=== PATIENT | female | born 1970 | race Caucasian/White ===

== ENCOUNTER 2017-01-17 11:41 | Inpatient (IN) | payer OTHER, SELFPAY ==
--- NOTE | 2017-01-17 11:45 | C.PDOC ---
History Of Present Illness 46F presents w syncope and headache. she apparently has had headache for 1 week and her pcp rx her MRI which is why she was here, but she passed out in admitting office and rapid response was called. she is unable to provide further hx- says she does not remember. Time Seen by Provider: 01/17/17 11:44 Chief Complaint (Nursing): Headache Past Medical History Vital Signs: Last Vital Signs Temp 97.7 F 01/19/17 08:15 Pulse 78 01/19/17 08:15 Resp 20 01/19/17 08:15 BP 134/86 01/19/17 08:15 Pulse Ox 95 01/19/17 08:15 - Medical History PMH: Fractures, Gastritis, Hiatal Hernia, Hypothyroidism, Kidney Stones, Migraine, Chronic Kidney Disease Surgical History: Family History: States: Unknown Family Hx - Social History Hx Tobacco Use: No Hx Alcohol Use: No Hx Substance Use: No - Immunization History Hx Tetanus Toxoid Vaccination: No Hx Influenza Vaccination: Yes Hx Pneumococcal Vaccination: No Review Of Systems Review Of Systems: ROS cannot be obtained secondary to pt's inabilty to answer questions. Physical Exam - Physical Exam Skin: Warm, Dry Head: Atraumatic Eye(s): bilateral: PERRL, EOMI Nose: No Epistaxis Oral Mucosa: Moist Lips: No Swelling Neck: Normal ROM, Supple Cardiovascular: Rhythm Regular Respiratory: No Decreased Breath Sounds, No Accessory Muscle Use, No Rales, No Rhonchi, No Wheezing Gastrointestinal/Abdominal: Soft, No Tenderness Extremity: No Swelling Pulses: Left Radial: Normal, Right Radial: Normal Neurological/Psych: No Oriented x3, Normal Cranial Nerves, No Cerebellar Signs, Other (pt is disoriented. she is crying during h&p. no focal deficits.) ED Course And Treatment - Laboratory Results Result Diagrams: 01/19/17 07:09 01/19/17 07:09 Lumbar Puncture - Time Out Time Out: Side verified, Site verified, Patient ID confirmed, Sterile procedures obs. - Consent obtained Consent obtained: Verbal - Performed by Performed by: Attending Physician - Contraindications Contraindications: None - Patient Position Patient position: Left lateral decubitus - Local Anesthetic Location: L3/L4 - Notes: Notes:: no csf obtained NIHSS Stroke Scale - Date/Time Evaluation Performed Date Performed: 01/17/17 Time Performed: 11:50 - How Severe is the Stoke Level of Consciousness: 1=Drowsy LOC to Questions: 2=Neither correct LOC to commands: 0=Obeys both correctly Best Gaze: 0=Normal Visual: 0=No visual loss Facial: 0=Normal Motor Arm - Left: 0=No drift Motor Arm - Right: 0=No drift Motor Leg - Left: 0=No drift Motor Leg - Right: 0=No drift Limb Ataxia: 0=Absent Sensory: 0=Normal Best Language: 0=No aphasia Dysarthia: 0=Normal articulation Extinction & Inattention (Neglect): 0=Normal, no object Score: 3 Severity Of Stroke: 1-4= Minor Stroke Medical Decision Making Medical Decision Making: The pts mental status did seem to be improving during the ED course, however due to continued ams in setting of headache disc w hospitalist who will admit for further eval. CT - Head PROCEDURE: CT HEAD WITHOUT CONTRAST. HISTORY: r/o stroke COMPARISON: None available. TECHNIQUE: Axial computed tomography images were obtained through the head/brain without intravenous contrast. Radiation dose: Total exam DLP = 799.51 mGy-cm. This CT exam was performed using one or more of the following dose reduction techniques: Automated exposure control, adjustment of the mA and/or kV according to patient size, and/or use of iterative reconstruction technique. FINDINGS: HEMORRHAGE: No acute parenchymal, subarachnoid or extra-axial hemorrhage. BRAIN: No evidence of large acute infarct seen. No parenchymal nor extra-axial masses or collections. . Questionable minimal on periventricular low-attenuation changes. Ventricular and sulcal size are within range of normal for this patient's stated age. VENTRICLES: No obstructive hydrocephalus. CALVARIUM: No acute calvarial fractures. PARANASAL SINUSES: Unremarkable as visualized. No significant inflammatory changes. MASTOID AIR CELLS: Unremarkable as visualized. No inflammatory changes. OTHER FINDINGS: None. IMPRESSION: No acute intracranial hemorrhage. Case discussed with Dr. Back at 12:07 p.m. with written down and read back verification. CXR HISTORY: Code cva COMPARISON: Comparison chest 11/13/2016 FINDINGS: LUNGS: Poor inspiration with low lung volumes, crowded bronchovascular markings and mild bibasilar atelectasis PLEURA: No significant pleural effusion identified, no pneumothorax apparent. CARDIOVASCULAR: Normal. OSSEOUS STRUCTURES: No significant abnormalities. VISUALIZED UPPER ABDOMEN: Normal. OTHER FINDINGS: None. IMPRESSION: Poor inspiration with low lung volumes, crowded bronchovascular markings and mild bibasilar atelectasis Disposition - Disposition Disposition: HOSPITALIZED Disposition Time: 15:17 Condition: GUARDED - Clinical Impression Clinical Impression: Headache, Altered mental status
--- NOTE | 2017-01-17 12:05 | CP.PCM.PN ---
Subjective - Date & Time of Evaluation Date of Evaluation: 01/17/17 Time of Evaluation: 12:00 - Subjective Subjective: This note is in response to a code star called in the outpatient admission center This patient was here for an MRI from Dr. Weinstein 05/22 to headaches The patient states she has been having a headache, intractable, associated with nausea/vomiting/photophobia and neck pain and fevers. She states nothing makes it feel better. She is not alert to person place or time, does not remember name , and is extremely emotionally labile. Review of systems otherwise negative, she just keeps stating "my head hurts so bad". As per admitting; states patient went to stand up and felt dizzy and they recommended she go to the ER and the patient was refusing initially. Patient then went to stand up and fell to the floor but did not hit her head, kind of slumped down to the ground and sat on her butt. Patient was seen wrteching in the wheelchair on the way to the ER. No family is with her. As per clinic notes: PMHx of hypothyroidism and nephrolithiais up to date on all preventative health screenings and makes all appointments; no documented history of noncompliance no documented history of headaches or migraines The patient was brought to the emergency room Vital signs were stable; no fever, slightly hypertensive, 98% on RA Care was handed over to Dr. Back. Objective - Vital Signs/Intake and Output Vital Signs (last 24 hours): Temp Pulse Resp BP Pulse Ox 98.4 F 90 18 154/94 H 99 01/17/17 11:42 01/17/17 11:42 01/17/17 11:42 01/17/17 11:42 01/17/17 11:42
--- NOTE | 2017-01-17 12:12 | CT ---
PROCEDURE: CT HEAD WITHOUT CONTRAST. HISTORY: r/o stroke COMPARISON: None available. TECHNIQUE: Axial computed tomography images were obtained through the head/brain without intravenous contrast. Radiation dose: Total exam DLP = 799.51 mGy-cm. This CT exam was performed using one or more of the following dose reduction techniques: Automated exposure control, adjustment of the mA and/or kV according to patient size, and/or use of iterative reconstruction technique. FINDINGS: HEMORRHAGE: No acute parenchymal, subarachnoid or extra-axial hemorrhage. BRAIN: No evidence of large acute infarct seen. No parenchymal nor extra-axial masses or collections. . Questionable minimal on periventricular low-attenuation changes. Ventricular and sulcal size are within range of normal for this patient's stated age. VENTRICLES: No obstructive hydrocephalus. CALVARIUM: No acute calvarial fractures. PARANASAL SINUSES: Unremarkable as visualized. No significant inflammatory changes. MASTOID AIR CELLS: Unremarkable as visualized. No inflammatory changes. OTHER FINDINGS: None. IMPRESSION: No acute intracranial hemorrhage. Case discussed with Dr. Back at 12:07 p.m. with written down and read back verification.
[2017-01-17 12:31] LABS: BASO # 0.1 K/uL (0.0-0.2); BASO % 0.6 % (0.0-2.0); EOS # 0.1 K/uL (0.0-0.7); EOS % 1.2 % (0.0-4.0); HEMATOCRIT 35.4 % (34.0-47.0); LYMPH # 2.5 K/uL (1.0-4.3); LYMPH % 23.8 % (20.0-40.0); MEAN CORPUSCULAR HEMOGLOBIN 25.4 pg (27.0-31.0); MEAN PLATELET VOLUME 7.7 fL (7.2-11.7); MONO % 9.1 % (0.0-10.0); RED CELL DISTRIBUTION WIDTH 16.7 % (11.5-14.5)
[2017-01-17 12:32] LABS: MEAN CELL VOLUME 76.9 fL (81.0-99.0); WHITE BLOOD COUNT 10.7 K/uL (4.8-10.8)
[2017-01-17 12:40] LABS: CHLORIDE 103 mmol/L (98-107); POTASSIUM 4.2 mmol/L (3.6-5.2); SODIUM 140 mmol/L (132-148)
[2017-01-17 12:42] LABS: ALB/GLOB RATIO 1.2 (1.0-2.1); ALKALINE PHOSPHATASE 89 U/L (38-126); AST/SGOT 28 U/L (14-36); BILIRUBIN,TOTAL 0.6 mg/dL (0.2-1.3); BLOOD UREA NITROGEN 10 mg/dL (7-17); CARBON DIOXIDE 22 mmol/L (22-30); CHOLESTEROL 179 mg/dL (0-199); GFR AFRICAN-AMERICAN > 60; GLUCOSE,RANDOM 123 mg/dL (65-105); TOTAL PROTEIN 7.3 g/dL (6.3-8.3)
[2017-01-17 12:43] LABS: ALT/SGPT 25 U/L (9-52); CALCIUM 8.4 mg/dl (8.6-10.4)
[2017-01-17 13:16] VITALS: BMI 31.8
[2017-01-17] MEDS ORDERED: Lidocaine 1% Inj (20ml) INFIL ONE (13:43)
[2017-01-17] MEDS ORDERED: cefTRIAXone 2 GM in Sodium Chloride 0.9% 100 ML IVPB STA (13:47)
[2017-01-17] MEDS ORDERED: Acyclovir 500 MG in Dextrose 5% In Water 100 ML IV STA (13:47)
--- NOTE | 2017-01-17 13:58 | RAD ---
HISTORY: Code cva COMPARISON: Comparison chest 11/13/2016 FINDINGS: LUNGS: Poor inspiration with low lung volumes, crowded bronchovascular markings and mild bibasilar atelectasis PLEURA: No significant pleural effusion identified, no pneumothorax apparent. CARDIOVASCULAR: Normal. OSSEOUS STRUCTURES: No significant abnormalities. VISUALIZED UPPER ABDOMEN: Normal. OTHER FINDINGS: None. IMPRESSION: Poor inspiration with low lung volumes, crowded bronchovascular markings and mild bibasilar atelectasis
[2017-01-17] MEDS ORDERED: Lidocaine 1% Inj (20ml) ONE (14:04)
[2017-01-17] MEDS ORDERED: cefTRIAXone IV 1 gm in Dextros 100 ML IVPB ONE (14:11)
[2017-01-17] MEDS ORDERED: Vancomycin 1 GM 1 GM/250 ML BAG IVPB ONE (15:42)
[2017-01-17] MEDS ORDERED: Apap-Butalbital-Caffeine 325-50-40mg Tab PO ONE (15:50)
[2017-01-17] MEDS ORDERED: Apap-Butalbital-Caffeine 325-50-40mg Tab ONE (16:31)
--- NOTE | 2017-01-17 16:39 | CP.PCM.CON ---
History of Present Illness - History of Present Illness History of Present Illness: 46 y/o F here for new onset headache which started yesterday, neck pain, chills and fever she recorded at home 101, nausea/vomiting, photophobia, and states she feels confused at times. Also had recent syncopal episode in the hospital. Denies chest pain, shortness of breath, GI symptoms, symptoms of stroke, weakness, motor or sensory deficits or other symptoms. Called to ER for assistance with lumbar puncture after previous unsuccessful attempts to obtain CSF. Review of Systems - Review of Systems All systems: reviewed and no additional remarkable complaints except Review of Systems: confusion at times - Constitutional Constitutional: As Per HPI, Night Sweats - EENT Eyes: As Per HPI Nose/Mouth/Throat: As Per HPI Additional comments: pupils equal and reactive - Cardiovascular Additional comments: S1 S2 - Respiratory Additional comments: clear bilaterally - Musculoskeletal Additional comments: all extremities warm, well perfused - Neurological Additional comments: normal motor and sensory all extremities. cervical tenderness, some difficulty/ pain with neck flexion to chest Past Patient History - Infectious Disease Hx of Infectious Diseases: None - Past Medical History & Family History Past Medical History?: Yes - Past Social History Smoking Status: Never Smoked - CARDIAC Hx Cardiac Disorders: No - PULMONARY Hx Respiratory Disorders: No - NEUROLOGICAL Hx Migraine: Yes - HEENT Hx HEENT Problems: No - RENAL Hx Chronic Kidney Disease: Yes Hx Kidney Stones: Yes - ENDOCRINE/METABOLIC Hx Hypothyroidism: Yes - HEMATOLOGICAL/ONCOLOGICAL Hx Blood Disorders: No - INTEGUMENTARY Hx Dermatological Problems: No - MUSCULOSKELETAL/RHEUMATOLOGICAL Hx Fractures: Yes - GASTROINTESTINAL Hx Gastritis: Yes - GENITOURINARY/GYNECOLOGICAL Hx Genitourinary Disorders: No - PSYCHIATRIC Hx Substance Use: No - SURGICAL HISTORY Hx Surgeries: Yes Hx Section: Yes Hx Dilation and Curettage: Yes Hx Open Reduction Internal Fixation: Yes (RIGHT WRIST) Other/Comment: LITHROTRIPSY X 3 - ANESTHESIA Hx Anesthesia: Yes Hx Anesthesia Reactions: No Hx Malignant Hyperthermia: No Meds Allergies/Adverse Reactions: Allergies Allergy/AdvReac Type Severity Reaction Status Date / Time EGG AdvReac Unknown VOMITING Verified 01/17/17 11:49 MEAT Allergy Severe VOMITING Uncoded 04/02/16 11:52 NUTS Allergy Unknown VOMITING Uncoded 04/02/16 11:52 Results - Vital Signs Recent Vital Signs: Last Vital Signs Temp 98.4 F 01/17/17 11:42 Pulse 56 L 01/17/17 14:34 Resp 22 01/17/17 14:34 BP 117/74 01/17/17 14:34 Pulse Ox 100 01/17/17 14:34 - Labs Result Diagrams: 01/17/17 12:24 01/17/17 12:24 Labs: Laboratory Results - last 24 hr 01/17/17 01/17/17 01/17/17 11:51 12:24 12:24 WBC 10.7 D RBC 4.60 Hgb 11.7 Hct 35.4 MCV 76.9 L D MCH 25.4 L MCHC 33.0 RDW 16.7 H Plt Count 270 MPV 7.7 Neut % (Auto) 65.3 Lymph % (Auto) 23.8 [place] % (Auto) 9.1 Eos % (Auto) 1.2 Baso % (Auto) 0.6 Neut # 7.0 Lymph # 2.5 [place]arro # 1.0 H Eos # 0.1 Baso # 0.1 PT 11.2 INR 1.0 APTT 25 Sodium Potassium Chloride Carbon Dioxide Anion Gap BUN Creatinine Est GFR ( Amer) Est GFR (Non-Af Amer) POC Glucose (mg/dL) 126 H Random Glucose Calcium Total Bilirubin AST ALT Alkaline Phosphatase Troponin I Total Protein Albumin Globulin Albumin/Globulin Ratio Triglycerides Cholesterol LDL Cholesterol Direct HDL Cholesterol Blood Type Antibody Screen 01/17/17 01/17/17 12:24 12:24 WBC RBC Hgb Hct MCV MCH MCHC RDW Plt Count MPV Neut % (Auto) Lymph % (Auto) [place] % (Auto) Eos % (Auto) Baso % (Auto) Neut # Lymph # [place]arro # Eos # Baso # PT INR APTT Sodium 140 Potassium 4.2 Chloride 103 Carbon Dioxide 22 Anion Gap 19 BUN 10 Creatinine 0.5 L Est GFR ( Amer) > 60 Est GFR (Non-Af Amer) > 60 POC Glucose (mg/dL) Random Glucose 123 H Calcium 8.4 L Total Bilirubin 0.6 AST 28 ALT 25 Alkaline Phosphatase 89 Troponin I < 0.0120 Total Protein 7.3 Albumin 3.9 Globulin 3.3 Albumin/Globulin Ratio 1.2 Triglycerides 110 D Cholesterol 179 LDL Cholesterol Direct 117 HDL Cholesterol 51 Blood Type O POSITIVE Antibody Screen Negative Assessment & Plan - Assessment and Plan (Free Text) Assessment: Patient with history as above and given patient's syncopal episode, fever, neck pain/photophobia, patient's concern for confusion, agreed lumbar puncture necessary to rule out acute infectious process. Patient currently AOX3,has the ability to participate in conversation and ask relevant questions about procedure, knows day/date/time, the president. Risks and benefits discussed with patient who agreed to procedure as she is concerned about symptoms. CT head negative for other process. Labs obtained, no other history of anticoagulation meds/symptoms. Sterile prep x3, sterile hat/gloves and masks for everyone in room. Local anethesia with 1% lidocaine at the skin, 22g Quincke needle introduced at L3/L4 interspace, with no complaints of paresthesias throughout. Non traumatic tap, non-bloody CSF obtained. Needle removed intact. Patient tolerated procedure well with no complaints.
[2017-01-17 16:44] LABS: FLUID TYPE SPINAL FLUID
--- NOTE | 2017-01-17 16:49 | CP.PCM.HP ---
<XochitlCamilo crooks - Last Filed: 01/17/17 17:07> History of Present Illness - History of Present Illness History of Present Illness: CC: Headache, Nausea/Vomiting x 4d This patient is a 46yo Female with a PMhx of Nephrolithiasis and Hypothyroidism with no family who originally came to the hospital to get an MRI done as an outpatient. She states she has had an intense headache for 4-5 days associated with fevers (up to 104 degrees at home), neck pain, photophobia, and neck pain. Also as witnessed in the hospital, she sometimes will become disoriented to person place and time, but otherwise is able to recall where she is, her name, and consequences of actions. She describes this as the worst headache of her life. She has never had a headache this bad in the past, but has in the past gotten headaches that are associated with intense neck pain initially that then shoot up to her head. She denies any other symptoms Pmhx: Nephrolithiasis Meds: Tamsulosin, Levothyroxine Surgeries: Lithrotripsy Allergies: Egg, meat, nuts, no medications FamHx: denies Social: Lives alone, no family, independent in all IADL and ADL, came to hospital on her own Present on Admission - Present on Admission Any Indicators Present on Admission: No History of DVT/PE: No History of Uncontrolled Diabetes: No Urinary Catheter: No Decubitus Ulcer Present: No Review of Systems - Constitutional Constitutional: As Per HPI Past Patient History - Infectious Disease Hx of Infectious Diseases: None - Past Medical History & Family History Past Medical History?: Yes - Past Social History Smoking Status: Never Smoked - CARDIAC Hx Cardiac Disorders: No - PULMONARY Hx Respiratory Disorders: No - NEUROLOGICAL Hx Migraine: Yes - HEENT Hx HEENT Problems: No - RENAL Hx Chronic Kidney Disease: Yes Hx Kidney Stones: Yes - ENDOCRINE/METABOLIC Hx Hypothyroidism: Yes - HEMATOLOGICAL/ONCOLOGICAL Hx Blood Disorders: No - INTEGUMENTARY Hx Dermatological Problems: No - MUSCULOSKELETAL/RHEUMATOLOGICAL Hx Fractures: Yes - GASTROINTESTINAL Hx Gastritis: Yes - GENITOURINARY/GYNECOLOGICAL Hx Genitourinary Disorders: No - PSYCHIATRIC Hx Substance Use: No - SURGICAL HISTORY Hx Surgeries: Yes Hx Section: Yes Hx Dilation and Curettage: Yes Hx Open Reduction Internal Fixation: Yes (RIGHT WRIST) Other/Comment: LITHROTRIPSY X 3 - ANESTHESIA Hx Anesthesia: Yes Hx Anesthesia Reactions: No Hx Malignant Hyperthermia: No Meds Allergies/Adverse Reactions: Allergies Allergy/AdvReac Type Severity Reaction Status Date / Time EGG AdvReac Unknown VOMITING Verified 01/17/17 11:49 MEAT Allergy Severe VOMITING Uncoded 04/02/16 11:52 NUTS Allergy Unknown VOMITING Uncoded 04/02/16 11:52 Physical Exam - Constitutional Appears: Confused - Head Exam Head Exam: ATRAUMATIC - Eye Exam Eye Exam: EOMI, Normal appearance, PERRL Pupil Exam: PERRL - ENT Exam ENT Exam: Mucous Membranes Moist - Neck Exam Neck exam: Positive for: Full Rom (neck spasm C7-T3), Meningismus - Respiratory Exam Respiratory Exam: Clear to Auscultation Bilateral, NORMAL BREATHING PATTERN. absent: Rales, Rhonchi, Wheezes - Cardiovascular Exam Cardiovascular Exam: Tachycardia, REGULAR RHYTHM, +S1 - GI/Abdominal Exam GI & Abdominal Exam: Normal Bowel Sounds, Soft. absent: Tenderness - Rectal Exam Rectal Exam: Deferred - Extremities Exam Extremities exam: Positive for: full ROM. Negative for: calf tenderness - Back Exam Back exam: NORMAL INSPECTION. absent: CVA tenderness (L), CVA tenderness (R) - Neurological Exam Neurological exam: Alert, CN II-XII Intact, Oriented x3 - Psychiatric Exam Additional comments: will be oriented completely and then at other times when headache is worse patient becomes confused - Skin Skin Exam: Warm Results - Vital Signs Recent Vital Signs: Last Vital Signs Temp 98.4 F 01/17/17 11:42 Pulse 56 L 01/17/17 14:34 Resp 22 01/17/17 14:34 BP 117/74 01/17/17 14:34 Pulse Ox 100 01/17/17 14:34 - Labs Result Diagrams: 01/17/17 12:24 01/17/17 12:24 Labs: Laboratory Results - last 24 hr 01/17/17 01/17/17 01/17/17 11:51 12:24 12:24 WBC 10.7 D RBC 4.60 Hgb 11.7 Hct 35.4 MCV 76.9 L D MCH 25.4 L MCHC 33.0 RDW 16.7 H Plt Count 270 MPV 7.7 Neut % (Auto) 65.3 Lymph % (Auto) 23.8 [place] % (Auto) 9.1 Eos % (Auto) 1.2 Baso % (Auto) 0.6 Neut # 7.0 Lymph # 2.5 [place] # 1.0 H Eos # 0.1 Baso # 0.1 PT 11.2 INR 1.0 APTT 25 Sodium Potassium Chloride Carbon Dioxide Anion Gap BUN Creatinine Est GFR ( Amer) Est GFR (Non-Af Amer) POC Glucose (mg/dL) 126 H Random Glucose Calcium Total Bilirubin AST ALT Alkaline Phosphatase Troponin I Total Protein Albumin Globulin Albumin/Globulin Ratio Triglycerides Cholesterol LDL Cholesterol Direct HDL Cholesterol Fluid Type Blood Type Antibody Screen 01/17/17 01/17/17 01/17/17 12:24 12:24 16:42 WBC RBC Hgb Hct MCV MCH MCHC RDW Plt Count MPV Neut % (Auto) Lymph % (Auto) [place] % (Auto) Eos % (Auto) Baso % (Auto) Neut # Lymph # [place] # Eos # Baso # PT INR APTT Sodium 140 Potassium 4.2 Chloride 103 Carbon Dioxide 22 Anion Gap 19 BUN 10 Creatinine 0.5 L Est GFR ( Amer) > 60 Est GFR (Non-Af Amer) > 60 POC Glucose (mg/dL) Random Glucose 123 H Calcium 8.4 L Total Bilirubin 0.6 AST 28 ALT 25 Alkaline Phosphatase 89 Troponin I < 0.0120 Total Protein 7.3 Albumin 3.9 Globulin 3.3 Albumin/Globulin Ratio 1.2 Triglycerides 110 D Cholesterol 179 LDL Cholesterol Direct 117 HDL Cholesterol 51 Fluid Type Spinal fluid Blood Type O POSITIVE Antibody Screen Negative Assessment & Plan - Assessment and Plan (Free Text) Assessment: 46yo female admitted for headache Headache CT head negative for any acute findings Neurology consult placed; Dr. Quintero appreciate recs fiorcet PRN f/u CSF cultures, cell count, HSV etc. Opening pressure normal; clear CSF f/u blood cultures patient is afebrile in hospital, no WBC, normotensive, but in light of symptoms and presentation patient is on prophylaxis for bacterial and viral meningitis Vanco, Ceftriaxone, and Acyclovir empirically Infectious disease consult: Dr. Cortez; appreciate recs Droplet precautions until CSF comes back History of Nephrolithiasis c/w tamsulosin Hypothyroidism c/w levothyroxine Prophylaxis Tylenol PRN fever Ibuprofen Pain Zofran PRN nausea Heart Healthy Diet Pepcid Lovenox Decision To Admit - Pt Status Changed To: Hospital Disposition Of: Inpatient - Admit Certification Admit to Inpatient:: After my assessment, the patient will require hospitalization for at least two midnights. This is because of the severity of symptoms shown, intensity of services needed, and/or the medical risk in this patient being treated as an outpatient. - InPatient: Physician Admission Certification:: the patient will need more than 2 midnights - . Bed Request Type: Telemetry Admitting Physician: Maryana Austin <Maryana Austin V - Last Filed: 01/18/17 11:25> Results - Vital Signs Recent Vital Signs: Last Vital Signs Temp 97.8 F 01/18/17 08:00 Pulse 76 01/18/17 08:00 Resp 20 01/18/17 08:00 BP 119/81 01/18/17 08:00 Pulse Ox 98 01/18/17 08:00 - Labs Result Diagrams: 01/18/17 07:55 01/18/17 07:55 Labs: Laboratory Results - last 24 hr 01/17/17 01/17/17 01/17/17 11:51 12:24 12:24 WBC 10.7 D RBC 4.60 Hgb 11.7 Hct 35.4 MCV 76.9 L D MCH 25.4 L MCHC 33.0 RDW 16.7 H Plt Count 270 MPV 7.7 Neut % (Auto) 65.3 Lymph % (Auto) 23.8 [place] % (Auto) 9.1 Eos % (Auto) 1.2 Baso % (Auto) 0.6 Neut # 7.0 Lymph # 2.5 [place] # 1.0 H Eos # 0.1 Baso # 0.1 PT 11.2 INR 1.0 APTT 25 Sodium Potassium Chloride Carbon Dioxide Anion Gap BUN Creatinine Est GFR ( Amer) Est GFR (Non-Af Amer) POC Glucose (mg/dL) 126 H Random Glucose Calcium Total Bilirubin AST ALT Alkaline Phosphatase Troponin I Total Protein Albumin Globulin Albumin/Globulin Ratio Triglycerides Cholesterol LDL Cholesterol Direct HDL Cholesterol Urine Color Urine Clarity Urine pH Ur Specific [place] Urine Protein Urine Glucose (UA) Urine Ketones Urine Blood Urine Nitrate Urine Bilirubin Urine Urobilinogen Ur Leukocyte Esterase Urine WBC (Auto) Urine RBC (Auto) Ur Squamous Epith Cells Urine Bacteria Urine HCG, Qual Fluid Type CSF Volume CSF Appearance CSF WBC CSF RBC CSF Total Cell Counted CSF Monos/Macrophages CSF Comment CSF Glucose CSF Total Protein Influenza Typ A,B (EIA) Blood Type Antibody Screen 01/17/17 01/17/17 01/17/17 12:24 12:24 16:42 WBC RBC Hgb Hct MCV MCH MCHC RDW Plt Count MPV Neut % (Auto) Lymph % (Auto) [place] % (Auto) Eos % (Auto) Baso % (Auto) Neut # Lymph # [place] # Eos # Baso # PT INR APTT Sodium 140 Potassium 4.2 Chloride 103 Carbon Dioxide 22 Anion Gap 19 BUN 10 Creatinine 0.5 L Est GFR ( Amer) > 60 Est GFR (Non-Af Amer) > 60 POC Glucose (mg/dL) Random Glucose 123 H Calcium 8.4 L Total Bilirubin 0.6 AST 28 ALT 25 Alkaline Phosphatase 89 Troponin I < 0.0120 Total Protein 7.3 Albumin 3.9 Globulin 3.3 Albumin/Globulin Ratio 1.2 Triglycerides 110 D Cholesterol 179 LDL Cholesterol Direct 117 HDL Cholesterol 51 Urine Color Urine Clarity Urine pH Ur Specific [place] Urine Protein Urine Glucose (UA) Urine Ketones Urine Blood Urine Nitrate Urine Bilirubin Urine Urobilinogen Ur Leukocyte Esterase Urine WBC (Auto) Urine RBC (Auto) Ur Squamous Epith Cells Urine Bacteria Urine HCG, Qual Fluid Type CSF Volume CSF Appearance CSF WBC CSF RBC CSF Total Cell Counted CSF Monos/Macrophages CSF Comment CSF Glucose 56 CSF Total Protein 24.0 Influenza Typ A,B (EIA) Blood Type O POSITIVE Antibody Screen Negative 01/17/17 01/17/17 01/17/17 16:42 21:21 21:21 WBC RBC Hgb Hct MCV MCH MCHC RDW Plt Count MPV Neut % (Auto) Lymph % (Auto) [place] % (Auto) Eos % (Auto) Baso % (Auto) Neut # Lymph # [place] # Eos # Baso # PT INR APTT Sodium Potassium Chloride Carbon Dioxide Anion Gap BUN Creatinine Est GFR ( Amer) Est GFR (Non-Af Amer) POC Glucose (mg/dL) Random Glucose Calcium Total Bilirubin AST ALT Alkaline Phosphatase Troponin I Total Protein Albumin Globulin Albumin/Globulin Ratio Triglycerides Cholesterol LDL Cholesterol Direct HDL Cholesterol Urine Color Straw Urine Clarity Clear Urine pH 7.0 Ur Specific [place] 1.009 Urine Protein Negative Urine Glucose (UA) Normal Urine Ketones Negative Urine Blood Negative Urine Nitrate Negative Urine Bilirubin Negative Urine Urobilinogen Normal Ur Leukocyte Esterase Neg Urine WBC (Auto) 1 Urine RBC (Auto) 1 Ur Squamous Epith Cells < 1 Urine Bacteria Rare Urine HCG, Qual Negative Fluid Type Spinal fluid CSF Volume 1 CSF Appearance Clear/colorless CSF WBC 0.0 CSF RBC 1.0 H CSF Total Cell Counted TEST NOT PERFORMED CSF Monos/Macrophages TEST NOT PERFORMED CSF Comment TEST NOT PERFORMED CSF Glucose CSF Total Protein Influenza Typ A,B (EIA) Blood Type Antibody Screen 01/17/17 01/18/17 01/18/17 21:26 07:16 07:55 WBC 6.7 RBC 4.66 Hgb 11.8 Hct 35.8 MCV 76.8 L MCH 25.2 L MCHC 32.9 L RDW 16.7 H Plt Count 313 MPV 7.8 Neut % (Auto) 79.4 H Lymph % (Auto) 18.8 L [place] % (Auto) 1.5 Eos % (Auto) 0.0 Baso % (Auto) 0.3 Neut # 5.3 Lymph # 1.3 [place] # 0.1 Eos # 0.0 Baso # 0.0 PT INR APTT Sodium Potassium Chloride Carbon Dioxide Anion Gap BUN Creatinine Est GFR ( Amer) Est GFR (Non-Af Amer) POC Glucose (mg/dL) 140 H Random Glucose Calcium Total Bilirubin AST ALT Alkaline Phosphatase Troponin I Total Protein Albumin Globulin Albumin/Globulin Ratio Triglycerides Cholesterol LDL Cholesterol Direct HDL Cholesterol Urine Color Urine Clarity Urine pH Ur Specific [place] Urine Protein Urine Glucose (UA) Urine Ketones Urine Blood Urine Nitrate Urine Bilirubin Urine Urobilinogen Ur Leukocyte Esterase Urine WBC (Auto) Urine RBC (Auto) Ur Squamous Epith Cells Urine Bacteria Urine HCG, Qual Fluid Type CSF Volume CSF Appearance CSF WBC CSF RBC CSF Total Cell Counted CSF Monos/Macrophages CSF Comment CSF Glucose CSF Total Protein Influenza Typ A,B (EIA) Negative for flu a/b Blood Type Antibody Screen 01/18/17 07:55 WBC RBC Hgb Hct MCV MCH MCHC RDW Plt Count MPV Neut % (Auto) Lymph % (Auto) [place] % (Auto) Eos % (Auto) Baso % (Auto) Neut # Lymph # [place] # Eos # Baso # PT INR APTT Sodium 140 Potassium 3.9 Chloride 102 Carbon Dioxide 24 Anion Gap 17 BUN 9 Creatinine 0.5 L Est GFR ( Amer) > 60 Est GFR (Non-Af Amer) > 60 POC Glucose (mg/dL) Random Glucose 131 H Calcium 9.2 Total Bilirubin 0.2 AST 16 ALT 31 Alkaline Phosphatase 97 Troponin I Total Protein 7.2 Albumin 3.8 Globulin 3.4 Albumin/Globulin Ratio 1.1 Triglycerides Cholesterol LDL Cholesterol Direct HDL Cholesterol Urine Color Urine Clarity Urine pH Ur Specific [place] Urine Protein Urine Glucose (UA) Urine Ketones Urine Blood Urine Nitrate Urine Bilirubin Urine Urobilinogen Ur Leukocyte Esterase Urine WBC (Auto) Urine RBC (Auto) Ur Squamous Epith Cells Urine Bacteria Urine HCG, Qual Fluid Type CSF Volume CSF Appearance CSF WBC CSF RBC CSF Total Cell Counted CSF Monos/Macrophages CSF Comment CSF Glucose CSF Total Protein Influenza Typ A,B (EIA) Blood Type Antibody Screen Assessment & Plan (1) Cervicogenic headache Status: Acute (2) Nephrolithiasis Status: Chronic (3) Chest pain Status: Acute (4) Hypothyroidism Status: Chronic (5) Prophylactic measure Status: Acute Attending/Attestation - Attestation I have personally seen and examined this patient.: Yes I have fully participated in the care of the patient.: Yes I have reviewed all pertinent clinical information: Yes Notes (Text): This is late computer entry for 01/17/17. Patient seen, evaluated and case discussed with day-time resident. 46 year old Female reports persistent headache over the past three months, with possible fever over the past two days. Per patient originally said 99.4F/100.4F/ 104F difficult to assess fever is accurate. Patient is afebrile and no elevated white count. Patient was initially called as code star in Admitting office was scheduled for outpatient MRI and was brought to the ED for evaluation by the resident. Patient is a patient of the [facility]. Patient is also reporting back pain and feels shooting pains behind her neck. Patient seen in [facility] Bed 3 in the ED in bright lights but does not appeared to be bother by it. ED staff assisting in translation for [facility] with the patient. Patient is not here with family members. The ED physician attempted the initial LP patient reported pain. Anesthesia, Dr Lyons came and perform LP obtained at bedside and CSF fluid studies ordered. Patient received Acyclovir, Rocephin and Vancomycin IV to treat meningitis. Patient does not appear to have any nuchal rigidity. No mengnismus. Patient is awake, alert, oriented X3, able to articulate pain, but is bothered by the persistent headache and base of neck pains. Assessment/Plan 1) Headache * CT head (01/17/17): no acute intracranial hemorrhage * s/p LP performed by anesthesa, Dr. Lyons-->help appreciated * Neurology consult placed; Dr. Quintero appreciate recs * Infectious disease consult: Dr. Cortez; appreciate recs * f/u CSF cultures, cell count, HSV etc. Opening pressure normal; clear CSF * f/u blood cultures * In ED, patient is afebrile in hospital, no WBC, normotensive, but in light of symptoms and presentation patient is on prophylaxis for bacterial and viral meningitis and placed on Droplet precautions. Given 1st dose of Vanco, Ceftriaxone, and Acyclovir empirically by ED. * Droplet precautions * UA: negative 2) History of Nephrolithiasis * c/w tamsulosin 0.4mg PO daily 3) History of Hypothyroidism * c/w levothyroxine 112mcg PO daily 4) Prophylaxis * d/c Tylenol PRN fever-->Advise Resident, nursing should call when patient has a fever in light of possible meningitis/encephalitis * Ibuprofen Pain * Zofran PRN nausea * Heart Healthy Diet * Pepcid 20mg IVP q daily * held Lovenox-->patient received LP puncture at bedside.
[2017-01-17] MEDS ORDERED: Apap-Butalbital-Caffeine 325-50-40mg Tab PO PRN (17:06)
[2017-01-17] MEDS ORDERED: Valproate 500 MG in Sodium Chloride 0.9% 100 ML IVPB ONE (20:35)
[2017-01-17] MEDS ORDERED: Dexamethasone 10 MG in Sodium Chloride 0.9% 50 ML IV ONE (20:35)
[2017-01-17 21:28] LABS: RBC URINE 1 /hpf (0-3); URINE BACTERIA RARE (<OCC); URINE BILIRUBIN NEGATIVE (NEGATIVE); URINE BLOOD NEGATIVE (NEGATIVE); URINE COLOR Straw (YELLOW); URINE GLUCOSE (UA) NORMAL (Normal); URINE KETONE NEGATIVE (NEGATIVE); URINE LEUKOCYTE ESTERASE NEG Leu/uL (Negative); URINE PROTEIN NEGATIVE (NEGATIVE); URINE UROBILINOGEN NORMAL mg/dL (0.2-1.0); WBC URINE 1 /hpf (0-5)
[2017-01-17] MEDS: Magnesium Sulfate 1 gm in D5W 1 GM/100 ML BAG IVPB SCH ×2 (21:35→22:00)
[2017-01-18] MEDS: Acyclovir 500 MG in Sodium Chloride 0.9% 100 ML IV SCH ×2 (01:57→15:00)
[2017-01-18] MEDS: Levothyroxine 112 MCG TAB PO SCH (06:15)
[2017-01-18 08:08] LABS: BASO % 0.3 % (0.0-2.0); HEMATOCRIT 35.8 % (34.0-47.0); LYMPH # 1.3 K/uL (1.0-4.3); LYMPH % 18.8 % (20.0-40.0); MEAN CELL VOLUME 76.8 fL (81.0-99.0); MEAN CORPUSCULAR HEMOGLOBIN 25.2 pg (27.0-31.0); MEAN CORPUSCULAR HGB CONC 32.9 g/dL (33.0-37.0); MEAN PLATELET VOLUME 7.8 fL (7.2-11.7); MONO # 0.1 K/uL (0.0-0.8); MONO % 1.5 % (0.0-10.0); RED CELL DISTRIBUTION WIDTH 16.7 % (11.5-14.5); WHITE BLOOD COUNT 6.7 K/uL (4.8-10.8)
[2017-01-18 08:22] LABS: CHLORIDE 102 mmol/L (98-107); POTASSIUM 3.9 mmol/L (3.6-5.2); SODIUM 140 mmol/L (132-148)
[2017-01-18 08:25] LABS: ALB/GLOB RATIO 1.1 (1.0-2.1); ALKALINE PHOSPHATASE 97 U/L (38-126); ALT/SGPT 31 U/L (9-52); AST/SGOT 16 U/L (14-36); BILIRUBIN,TOTAL 0.2 mg/dL (0.2-1.3); BLOOD UREA NITROGEN 9 mg/dL (7-17); CALCIUM 9.2 mg/dl (8.6-10.4); CARBON DIOXIDE 24 mmol/L (22-30); GFR AFRICAN-AMERICAN > 60; GLUCOSE,RANDOM 131 mg/dL (65-105); TOTAL PROTEIN 7.2 g/dL (6.3-8.3)
[2017-01-18] MEDS ORDERED: Enoxaparin 40 mg Syringe SC SCH (10:00)
[2017-01-18] MEDS ORDERED: Levothyroxine 125 MCG TAB PO SCH (10:00)
[2017-01-18] MEDS: cefTRIAXone 2 GM in Sodium Chloride 0.9% 100 ML IVPB SCH (10:35)
--- NOTE | 2017-01-18 10:59 | CP.PCM.PN ---
Subjective - Date & Time of Evaluation Date of Evaluation: 01/18/17 Time of Evaluation: 10:50 - Subjective Subjective: Medical Attending Note Patient seen and examined. Patient reports occipital headache, denies visual changes, denies photophobia, denies phonophobia and reports thoracic muscular area is tense and feels like knots. Patient reports point tenderness over the chest only on palptation. Denies abdominal pain, denies nausea, denies vomitting , denies urinary complaints, denies diarrhea. Patient is wearing glass. Attempted soft tissue neck techniques to relieve muscle spasm at bedside with patient's permission, but no improvement. Objective - Vital Signs/Intake and Output Vital Signs (last 24 hours): Temp Pulse Resp BP Pulse Ox 97.8 F 76 20 119/81 98 01/18/17 08:00 01/18/17 08:00 01/18/17 08:00 01/18/17 08:00 01/18/17 08:00 - Medications Medications: Current Medications Enoxaparin Sodium (Lovenox) 40 mg SC DAILY [facility] Famotidine (Pepcid) 20 mg IVP DAILY [facility] Last Admin: 01/18/17 10:34 Dose: 20 mg Ceftriaxone Sodium 2 gm/ (Sodium Chloride) 100 mls @ 100 mls/hr IVPB DAILY [facility] Last Admin: 01/18/17 10:35 Dose: 100 mls/hr Acyclovir 500 mg/ Sodium (Chloride) 100 mls @ 100 mls/hr IV Q12H [facility] Last Admin: 01/18/17 01:57 Dose: 100 mls/hr Vancomycin HCl 1 gm/ Sodium (Chloride) 250 mls @ 166.7 mls/hr IVPB Q24H [facility] Ibuprofen (Motrin Tab) 600 mg PO Q6 [facility] Last Admin: 01/17/17 18:23 Dose: 600 mg Levothyroxine Sodium (Synthroid) 112 mcg PO DAILY@0630 [facility] Last Admin: 01/18/17 06:15 Dose: 112 mcg Ondansetron HCl (Zofran Inj) 4 mg IVP Q6H PRN PRN Reason: Nausea/Vomiting Pneumococcal Polyvalent Vaccine (Pneumovax 23 Vaccine) 0.5 ml IM .ONCE ONE Stop: 01/20/17 10:01 Tamsulosin HCl (Flomax) 0.4 mg PO DAILY [facility] Last Admin: 01/18/17 10:35 Dose: 0.4 mg - Labs Labs: 01/18/17 07:55 01/18/17 07:55 PT 11.2 SECONDS (9.7-12.2) 01/17/17 12:24 INR 1.0 01/17/17 12:24 APTT 25 SECONDS (21-34) 01/17/17 12:24 - Constitutional Appears: Non-toxic, No Acute Distress - Head Exam Head Exam: NORMAL INSPECTION - Eye Exam Eye Exam: EOMI Pupil Exam: PERRL. absent: Unequal - ENT Exam ENT Exam: Mucous Membranes Moist - Neck Exam Neck Exam: Full ROM. absent: Lymphadenopathy, Meningismus, Normal Inspection, Tenderness - Respiratory Exam Respiratory Exam: Clear to Ausculation Bilateral, NORMAL BREATHING PATTERN. absent: Rales, Rhonchi, Wheezes - Cardiovascular Exam Cardiovascular Exam: REGULAR RHYTHM, +S1, +S2 - GI/Abdominal Exam GI & Abdominal Exam: Soft, Normal Bowel Sounds. absent: Distended, Firm, Guarding, Rigid, Tenderness, Rebound - Extremities Exam Extremities Exam: Normal Capillary Refill. absent: Pedal Edema, Tenderness - Back Exam Back Exam: muscle spasm (thoracic 1-2 area, no erythema, feels like knots). absent: CVA tenderness (L), CVA tenderness (R), rash noted, tenderness, vertebral tenderness - Neurological Exam Neurological Exam: Alert, Awake, CN II-XII Intact, Oriented x3 Neuro motor strength exam: Left Upper Extremity: 5, Right Upper Extremity: 5, Left Lower Extremity: 5, Right Lower Extremity: 5 - Psychiatric Exam Psychiatric exam: Normal Affect, Normal Mood - Skin Skin Exam: Dry, Intact, Normal Color, Warm Assessment and Plan (1) Cervicogenic headache Assessment & Plan: 01/18: s/p LP by anesthesia (POD 1)--> appears normal-->low suspicion for meningitis/encephalitis; afebrile, no elevated white count In ED, patient received 1st dose of Acyclovir, Rocephin, and Vancomcyin to cover given persistent headache X3 months, and possible fever at home Acyclovir 500mg IVQ 12H, Rocephin 2gm IV Qdialy, and Vancomyin 1 gram IV Q24h (active since 01/18/17) Droplet isolations pre-emptive in light of possible menegitis/ encephalitis Neurology (Dr. Quintero)-->f/u recommendations Infectious Disease (Dr. Cortez) r/o meningitis Will give muscle relaxant and Nsaid to help releve muscle spasm over the upper thoracic Status: Acute (2) Nephrolithiasis Assessment & Plan: 01/18: known hx, patient does not have any colic pain, no CVA tenderness b/l, encourage water intake Tamsulosin 0.4mg PO daily Status: Chronic (3) Chest pain Assessment & Plan: 01/18: Will order for chest pain and RAFFAELE; low suspicion for cardiac absent of risk factors Status: Acute (4) Hypothyroidism Assessment & Plan: 01/18: Synthroid 112mcg PO AM Status: Chronic (5) Prophylactic measure Assessment & Plan: GI ppx: DVT ppx: Status: Acute
--- NOTE | 2017-01-18 13:55 | CP.PCM.CON ---
History of Present Illness - History of Present Illness History of Present Illness: Mr. Moore is a 46-year-old woman with a past medical history of nephrolithiasis, hypothyroidism and headache, neck pain, fever along with photophobia for the last week. According to the patient, she had an episode of loss of consciousness associated with the headache and afterward she had episodes of confusion. She was given decadron, magnesium sulfate and depakote yesterday. Today, she said her headache is better, but she continues to have neck pain, back pain and chest pain. CT scan of the head was normal. LP was done and her opening pressure and CSF analysis was normal. There were no acute events overnight. Review of Systems - Review of Systems All systems: reviewed and no additional remarkable complaints except Past Patient History - Infectious Disease Hx of Infectious Diseases: None - Past Medical History & Family History Past Medical History?: Yes - Past Social History Smoking Status: Never Smoked - CARDIAC Hx Cardiac Disorders: No - PULMONARY Hx Respiratory Disorders: No - NEUROLOGICAL Hx Neurological Disorder: Yes Hx Migraine: Yes - HEENT Hx HEENT Problems: No - RENAL Hx Chronic Kidney Disease: Yes Hx Kidney Stones: Yes - ENDOCRINE/METABOLIC Hx Endocrine Disorders: Yes Hx Hypothyroidism: Yes - HEMATOLOGICAL/ONCOLOGICAL Hx Blood Disorders: No - INTEGUMENTARY Hx Dermatological Problems: No - MUSCULOSKELETAL/RHEUMATOLOGICAL Hx Falls: No - GASTROINTESTINAL Hx Gastrointestinal Disorders: Yes Hx Gastritis: Yes - GENITOURINARY/GYNECOLOGICAL Hx Genitourinary Disorders: No - PSYCHIATRIC Hx Substance Use: No - SURGICAL HISTORY Hx Surgeries: Yes Hx Section: Yes Hx Dilation and Curettage: Yes Hx Open Reduction Internal Fixation: Yes (RIGHT WRIST) Other/Comment: LITHROTRIPSY X 3 - ANESTHESIA Hx Anesthesia: Yes Hx Anesthesia Reactions: No Hx Malignant Hyperthermia: No Has any member of the family had a problem w/ anesthesia?: No Meds Allergies/Adverse Reactions: Allergies Allergy/AdvReac Type Severity Reaction Status Date / Time EGG AdvReac Unknown VOMITING Verified 01/17/17 11:49 MEAT Allergy Severe VOMITING Uncoded 04/02/16 11:52 NUTS Allergy Unknown VOMITING Uncoded 04/02/16 11:52 - Medications Medications: Current Medications Enoxaparin Sodium (Lovenox) 40 mg SC DAILY [facility] Famotidine (Pepcid) 20 mg IVP DAILY [facility] Last Admin: 01/18/17 10:34 Dose: 20 mg Ceftriaxone Sodium 2 gm/ (Sodium Chloride) 100 mls @ 100 mls/hr IVPB DAILY [facility] Last Admin: 01/18/17 10:35 Dose: 100 mls/hr Acyclovir 500 mg/ Sodium (Chloride) 100 mls @ 100 mls/hr IV Q12H [facility] Last Admin: 01/18/17 01:57 Dose: 100 mls/hr Vancomycin HCl 1 gm/ Sodium (Chloride) 250 mls @ 166.7 mls/hr IVPB Q24H [facility] Ibuprofen (Motrin Tab) 600 mg PO Q6 [facility] Last Admin: 01/17/17 18:23 Dose: 600 mg Levothyroxine Sodium (Synthroid) 112 mcg PO DAILY@0630 [facility] Last Admin: 01/18/17 06:15 Dose: 112 mcg Ondansetron HCl (Zofran Inj) 4 mg IVP Q6H PRN PRN Reason: Nausea/Vomiting Pneumococcal Polyvalent Vaccine (Pneumovax 23 Vaccine) 0.5 ml IM .ONCE ONE Stop: 01/20/17 10:01 Tamsulosin HCl (Flomax) 0.4 mg PO DAILY [facility] Last Admin: 01/18/17 10:35 Dose: 0.4 mg Physical Exam - Constitutional Appears: Well - Head Exam Head Exam: ATRAUMATIC, NORMAL INSPECTION, NORMOCEPHALIC - Eye Exam Eye Exam: EOMI, Normal appearance, PERRL - ENT Exam ENT Exam: Mucous Membranes Moist, Normal Exam - Neck Exam Neck exam: Positive for: Tenderness - Respiratory Exam Respiratory Exam: Chest Wall Tenderness - Cardiovascular Exam Cardiovascular Exam: REGULAR RHYTHM, +S1, +S2 - GI/Abdominal Exam GI & Abdominal Exam: Normal Bowel Sounds, Soft. absent: Tenderness - Rectal Exam Rectal Exam: Deferred - Extremities Exam Extremities exam: Positive for: normal inspection - Back Exam Back exam: NORMAL INSPECTION - Neurological Exam Neurological exam: Alert, CN II-XII Intact, Normal Gait, Oriented x3, Reflexes Normal - Expanded Neurological Exam Expanded Patient oriented to: person, place, time Cranial nerves: Facial Palsey w/Forehead Movement: Normal, Facial Sensation: Normal, Nystagmus: Normal Ataxia: No Cerebellar Function: Finger to Nose: Normal, Heel to Vogel: Normal Upper motor neuron: Babinski Sign: Normal Sensory exam: Lower Extremity Light Touch: Normal, Lower Extremity Pin Prick: Normal, Upper Extremity Light Touch: Normal, Upper Extremity Pin Prick: Normal Neuro motor strength exam: Left Upper Extremity: 5, Right Upper Extremity: 5, Left Lower Extremity: 5, Right Lower Extremity: 5 DTR: Achilles Tendon Left: 2+, Achilles Tendon Right: 2+, Bicep Left: 2+, Bicep Right: 2+, Brachioradialis Left: 2+, Brachioradialis Right: 2+, Patellar Left: 2 +, Patellar Right: 2+, Tricep Left: 2+, Tricep Right: 2+ - Psychiatric Exam Psychiatric exam: Normal Affect, Normal Mood - Skin Skin Exam: Dry, Intact, Normal Color, Warm Results - Vital Signs Recent Vital Signs: Last Vital Signs Temp 97.8 F 01/18/17 08:00 Pulse 76 01/18/17 08:00 Resp 20 01/18/17 08:00 BP 119/81 01/18/17 08:00 Pulse Ox 98 01/18/17 08:00 - Labs Result Diagrams: 01/18/17 07:55 01/18/17 07:55 Labs: Laboratory Results - last 24 hr 01/17/17 01/17/17 01/17/17 16:42 16:42 21:21 WBC RBC Hgb Hct MCV MCH MCHC RDW Plt Count MPV Neut % (Auto) Lymph % (Auto) [place] % (Auto) Eos % (Auto) Baso % (Auto) Neut # Lymph # [place] # Eos # Baso # Sodium Potassium Chloride Carbon Dioxide Anion Gap BUN Creatinine Est GFR ( Amer) Est GFR (Non-Af Amer) POC Glucose (mg/dL) Random Glucose Calcium Total Bilirubin AST ALT Alkaline Phosphatase Total Creatine Kinase CK-MB (Mass) Troponin I, Quant Total Protein Albumin Globulin Albumin/Globulin Ratio Urine Color Straw Urine Clarity Clear Urine pH 7.0 Ur Specific [place] 1.009 Urine Protein Negative Urine Glucose (UA) Normal Urine Ketones Negative Urine Blood Negative Urine Nitrate Negative Urine Bilirubin Negative Urine Urobilinogen Normal Ur Leukocyte Esterase Neg Urine WBC (Auto) 1 Urine RBC (Auto) 1 Ur Squamous Epith Cells < 1 Urine Bacteria Rare Urine HCG, Qual Fluid Type Spinal fluid CSF Volume 1 CSF Appearance Clear/colorless CSF WBC 0.0 CSF RBC 1.0 H CSF Total Cell Counted TEST NOT PERFORMED CSF Monos/Macrophages TEST NOT PERFORMED CSF Comment TEST NOT PERFORMED CSF Glucose 56 CSF Total Protein 24.0 Influenza Typ A,B (EIA) 01/17/17 01/17/17 01/18/17 21:21 21:26 07:16 WBC RBC Hgb Hct MCV MCH MCHC RDW Plt Count MPV Neut % (Auto) Lymph % (Auto) [place] % (Auto) Eos % (Auto) Baso % (Auto) Neut # Lymph # [place] # Eos # Baso # Sodium Potassium Chloride Carbon Dioxide Anion Gap BUN Creatinine Est GFR ( Amer) Est GFR (Non-Af Amer) POC Glucose (mg/dL) 140 H Random Glucose Calcium Total Bilirubin AST ALT Alkaline Phosphatase Total Creatine Kinase CK-MB (Mass) Troponin I, Quant Total Protein Albumin Globulin Albumin/Globulin Ratio Urine Color Urine Clarity Urine pH Ur Specific [place] Urine Protein Urine Glucose (UA) Urine Ketones Urine Blood Urine Nitrate Urine Bilirubin Urine Urobilinogen Ur Leukocyte Esterase Urine WBC (Auto) Urine RBC (Auto) Ur Squamous Epith Cells Urine Bacteria Urine HCG, Qual Negative Fluid Type CSF Volume CSF Appearance CSF WBC CSF RBC CSF Total Cell Counted CSF Monos/Macrophages CSF Comment CSF Glucose CSF Total Protein Influenza Typ A,B (EIA) Negative for flu a/b 01/18/17 01/18/17 01/18/17 07:55 07:55 11:22 WBC 6.7 RBC 4.66 Hgb 11.8 Hct 35.8 MCV 76.8 L MCH 25.2 L MCHC 32.9 L RDW 16.7 H Plt Count 313 MPV 7.8 Neut % (Auto) 79.4 H Lymph % (Auto) 18.8 L [place] % (Auto) 1.5 Eos % (Auto) 0.0 Baso % (Auto) 0.3 Neut # 5.3 Lymph # 1.3 [place] # 0.1 Eos # 0.0 Baso # 0.0 Sodium 140 Potassium 3.9 Chloride 102 Carbon Dioxide 24 Anion Gap 17 BUN 9 Creatinine 0.5 L Est GFR ( Amer) > 60 Est GFR (Non-Af Amer) > 60 POC Glucose (mg/dL) 217 H Random Glucose 131 H Calcium 9.2 Total Bilirubin 0.2 AST 16 ALT 31 Alkaline Phosphatase 97 Total Creatine Kinase CK-MB (Mass) Troponin I, Quant Total Protein 7.2 Albumin 3.8 Globulin 3.4 Albumin/Globulin Ratio 1.1 Urine Color Urine Clarity Urine pH Ur Specific [place] Urine Protein Urine Glucose (UA) Urine Ketones Urine Blood Urine Nitrate Urine Bilirubin Urine Urobilinogen Ur Leukocyte Esterase Urine WBC (Auto) Urine RBC (Auto) Ur Squamous Epith Cells Urine Bacteria Urine HCG, Qual Fluid Type CSF Volume CSF Appearance CSF WBC CSF RBC CSF Total Cell Counted CSF Monos/Macrophages CSF Comment CSF Glucose CSF Total Protein Influenza Typ A,B (EIA) 01/18/17 12:01 WBC RBC Hgb Hct MCV MCH MCHC RDW Plt Count MPV Neut % (Auto) Lymph % (Auto) [place] % (Auto) Eos % (Auto) Baso % (Auto) Neut # Lymph # [place] # Eos # Baso # Sodium Potassium Chloride Carbon Dioxide Anion Gap BUN Creatinine Est GFR ( Amer) Est GFR (Non-Af Amer) POC Glucose (mg/dL) Random Glucose Calcium Total Bilirubin AST ALT Alkaline Phosphatase Total Creatine Kinase 103 CK-MB (Mass) 1.92 Troponin I, Quant < 0.0120 Total Protein Albumin Globulin Albumin/Globulin Ratio Urine Color Urine Clarity Urine pH Ur Specific [place] Urine Protein Urine Glucose (UA) Urine Ketones Urine Blood Urine Nitrate Urine Bilirubin Urine Urobilinogen Ur Leukocyte Esterase Urine WBC (Auto) Urine RBC (Auto) Ur Squamous Epith Cells Urine Bacteria Urine HCG, Qual Fluid Type CSF Volume CSF Appearance CSF WBC CSF RBC CSF Total Cell Counted CSF Monos/Macrophages CSF Comment CSF Glucose CSF Total Protein Influenza Typ A,B (EIA) Assessment & Plan (1) Cervicogenic headache Assessment and Plan: The headache seems to be improving with the recent dose of decadron, depakote, magnesium sulfate, flexeril and fioricet. I recommend avoiding opiates that can change mental status. May continue Flexeril (5 mg PO Q8 PRN neck pain) and give another dose of decadron 10 mg IV once. I recommend an MRI of the cervical and thoracic spine with and without contrast for further evaluation and rule out any potential abscess. PT/OT eval and treat is also recommended. Fluids with NS at 75 mL/hr. DVT Px. Thank you. Status: Acute Priority: Medium
--- NOTE | 2017-01-18 17:29 | CP.PCM.CON ---
History of Present Illness - History of Present Illness History of Present Illness: 46F presents w syncope and headache. she apparently has had headache for 1 week and her pcp sent her for MRI While here for MRI developed syncope and rapid response was called Had fever at home of 101 but no fever thus far while here C/O chest pain neck pain and headache but no neck stiffness or photophobia Denies travel, pets or ill contacts CSF was essentially normal MRI CX spine is pending - Medical History PMH: Fractures, Gastritis, Hiatal Hernia, Hypothyroidism, Kidney Stones, Migraine, Chronic Kidney Disease Surgical History: Review of Systems - Constitutional Constitutional: As Per HPI - EENT Eyes: absent: As Per HPI, Blind Spots, Blurred Vision, Change in Vision, Decreased Night Vision, Diplopia, Discharge, Dry Eye, Exophthalmos, Floaters, Irritation, Itchy Eyes, Loss of Peripheral Vision, Pain, Photophobia, Requires Corrective Lenses, Sees Flashes, Spots in Vision, Tunnel Vision, Other Visual Disturbances, Loss of Vision, Other Ears: absent: As Per HPI, Decreased Hearing, Ear Discharge, Ear Pain, Tinnitus, Abnormal Hearing, Disequilibrium, Dizziness, Other Nose/Mouth/Throat: absent: As Per HPI, Epistaxis, Nasal Congestion, Nasal Discharge, Nasal Obstruction, Nasal Trauma, Nose Pain, Post Nasal Drip, Sinus Pain, Sinus Pressure, Bleeding Gums, Change in Voice, Dental Pain, Dry Mouth, Dysphagia, Halitosis, Hoarsness, Lip Swelling, Mouth Lesions, Mouth Pain, Odynophagia, Sore Throat, Throat Swelling, Tongue Swelling, Facial Pain, Neck Pain, Neck Mass, Other - Breasts Breasts: absent: As Per HPI, Change in Shape, Mass, Pain, Nipple Discharge, Nipple Inversion, Skin Changes, Swelling, Other - Cardiovascular Cardiovascular: absent: As Per HPI, Acrocyanosis, Chest Pain, Chest Pain at Rest , Chest Pain with Activity, Claudication, Diaphoresis, Dyspnea, Dyspnea on Exertion, Edema, Irregular Heart Rhythm, Pain Radiating to Arm/Neck/Jaw, Leg Edema, Leg Ulcers, Lightheadedness, Orthopnea, Palpitations, Paroxysmal Nocturnal Dyspnea, Pedal Edema, Radiating Pain, Rapid Heart Rate, Slow Heart Rate, Syncope, Other - Respiratory Respiratory: absent: As Per HPI, Cough, Dyspnea, Hemoptysis, Dyspnea on Exertion , Wheezing, Snoring, Stridor, Pain on Inspiration, Chest Congestion, Excessive Mucous Production, Change in Mucous Color, Pain with Coughing, Other - Gastrointestinal Gastrointestinal: absent: As Per HPI, Abdominal Pain, Belching, Bloating, Change in Bowel Habits, Change in Stool Character, Coffee Ground Emesis, Constipation, Cramping, Diarrhea, Dyspepsia, Dysphagia, Early Satiety, Excessive Flatus, Fecal Incontinence, Heartburn, Hematemesis, Hematochezia, Loose Stools, Melena, Nausea, Odynophagia, Temesmus, Vomiting, Other - Genitourinary Genitourinary: absent: As Per HPI, Change in Urinary Stream, Difficulty Urinating, Dysuria, Flank Pain, Hematuria, Pyuria, Nocturia, Urinary Incontinence, Urinary Frequency, Urinary Hesitance, Urinary Urgency, Voiding Freq/Small Amts, Freq UTI, Hx Renal/Bladder Calculi, Hx /Renal Surgery, Bladder Distension, Other - Reproductive: Female Reproductive:Female: absent: As Per HPI, Amenorrhea, Amenorrhea/ Control, Currently Menstual, Cycle <21 Days, Cycle >35 Days, Cycle Variable, Menses 1-7 Days, Menses >/= 8 Days, Menses Variable, Cycle > 4 Weeks Between, No Menses for 6 Months, Heavy Menses, Light Menses, Normal Menses, Spotting Between Cycles , S/P Hysterectomy, Menopausal, Post Menopausal, Premenarche, Abnormal Vaginal Bleeding, Dysmenorrhea, Dyspareunia, Genital Lesions, Genital Pruritis, Pelvic Pain, Prolapse Symptoms, Sexual Dysfunction, Vaginal Discharge, Vaginal Dryness , Vaginal Odor, Vaginal Pruritis, Other - Menstruation Menstruation: absent: As Per HPI, Amenorrhea, Amenorrhea/ Control, Currently Menstual, Cycle <21 Days, Cycle >35 Days, Cycle Variable, Menses 1-7 Days, Menses >/= 8 Days, Menses Variable, Cycle > 4 Weeks Between, No Menses for 6 Months, Heavy Menses, Light Menses, Normal Menses, Spotting Between Cycles , S/P Hysterectomy, Menopausal, Post Menopausal, Premenarche, Abnormal Vaginal Bleeding, Dysmenorrhea, Other - Musculoskeletal Musculoskeletal: As Per HPI - Integumentary Integumentary: absent: As Per HPI, Acne, Alopecia, Bleeding Lesions, Change in Hair, Change in Nails, Change in Pigmentation, Changing Lesions, Dry Skin, Erythema, Furuncle, Hirsutism, Lesions, New Lesions, Non-Healing Lesions, Photosensitivity, Pruritus, Rash, Skin Pain, Skin Ulcer, Sores, Striae, Swelling , Unusual Bruising, Wounds, Jaundice, Other - Neurological Neurological: As Per HPI - Psychiatric Psychiatric: absent: As Per HPI, Abnormal Sleep Pattern, Anhedonia, Anxiety, Auditory Hallucinations, Behavioral Changes, Change in Appetite, Change in Libido, Confusion, Depression, Difficulty Concentrating, Hallucinations, Homicidal Ideation, Hopelessness, Irritability, Memory Loss, Mood Swings, Panic Attacks, Paranoia, Suicidal Ideation, Visual Hallucinations, Tactile Hallucinations, Other - Endocrine Endocrine: As Per HPI - Hematologic/Lymphatic Hematologic: absent: As Per HPI, Easy Bleeding, Easy Bruising, Lymphadenopathy, Other Past Patient History - Infectious Disease Hx of Infectious Diseases: None - Past Medical History & Family History Past Medical History?: Yes - Past Social History Smoking Status: Never Smoked - CARDIAC Hx Cardiac Disorders: No - PULMONARY Hx Respiratory Disorders: No - NEUROLOGICAL Hx Neurological Disorder: Yes Hx Migraine: Yes - HEENT Hx HEENT Problems: No - RENAL Hx Chronic Kidney Disease: Yes Hx Kidney Stones: Yes - ENDOCRINE/METABOLIC Hx Endocrine Disorders: Yes Hx Hypothyroidism: Yes - HEMATOLOGICAL/ONCOLOGICAL Hx Blood Disorders: No - INTEGUMENTARY Hx Dermatological Problems: No - MUSCULOSKELETAL/RHEUMATOLOGICAL Hx Falls: No - GASTROINTESTINAL Hx Gastrointestinal Disorders: Yes Hx Gastritis: Yes - GENITOURINARY/GYNECOLOGICAL Hx Genitourinary Disorders: No - PSYCHIATRIC Hx Substance Use: No - SURGICAL HISTORY Hx Surgeries: Yes Hx Section: Yes Hx Dilation and Curettage: Yes Hx Open Reduction Internal Fixation: Yes (RIGHT WRIST) Other/Comment: LITHROTRIPSY X 3 - ANESTHESIA Hx Anesthesia: Yes Hx Anesthesia Reactions: No Hx Malignant Hyperthermia: No Has any member of the family had a problem w/ anesthesia?: No Meds Allergies/Adverse Reactions: Allergies Allergy/AdvReac Type Severity Reaction Status Date / Time EGG AdvReac Unknown VOMITING Verified 01/17/17 11:49 MEAT Allergy Severe VOMITING Uncoded 04/02/16 11:52 NUTS Allergy Unknown VOMITING Uncoded 04/02/16 11:52 - Medications Medications: Current Medications Cyclobenzaprine HCl (Flexeril) 5 mg PO TID PRN PRN Reason: Neck pain/headache Enoxaparin Sodium (Lovenox) 40 mg SC DAILY [facility] Famotidine (Pepcid) 20 mg IVP DAILY [facility] Last Admin: 01/18/17 10:34 Dose: 20 mg Ceftriaxone Sodium 2 gm/ (Sodium Chloride) 100 mls @ 100 mls/hr IVPB DAILY [facility] Last Admin: 01/18/17 10:35 Dose: 100 mls/hr Acyclovir 500 mg/ Sodium (Chloride) 100 mls @ 100 mls/hr IV Q12H [facility]PL[facility] Last Admin: 01/18/17 15:00 Dose: 100 mls/hr Vancomycin HCl 1 gm/ Sodium (Chloride) 250 mls @ 166.7 mls/hr IVPB Q24H [facility] Last Admin: 01/18/17 14:18 Dose: 166.7 mls/hr Ibuprofen (Motrin Tab) 600 mg PO Q6 [facility] Last Admin: 01/18/17 17:22 Dose: 600 mg Levothyroxine Sodium (Synthroid) 112 mcg PO DAILY@0630 [facility] Last Admin: 01/18/17 06:15 Dose: 112 mcg Ondansetron HCl (Zofran Inj) 4 mg IVP Q6H PRN PRN Reason: Nausea/Vomiting Pneumococcal Polyvalent Vaccine (Pneumovax 23 Vaccine) 0.5 ml IM .ONCE ONE Stop: 01/20/17 10:01 Tamsulosin HCl (Flomax) 0.4 mg PO DAILY [facility] Last Admin: 01/18/17 10:35 Dose: 0.4 mg Physical Exam - Constitutional Appears: Non-toxic - Head Exam Head Exam: NORMOCEPHALIC - Eye Exam Eye Exam: PERRL. absent: Scleral icterus - ENT Exam ENT Exam: Mucous Membranes Dry, Normal External Ear Exam - Neck Exam Neck exam: Negative for: Lymphadenopathy - Respiratory Exam Respiratory Exam: Decreased Breath Sounds - Cardiovascular Exam Cardiovascular Exam: REGULAR RHYTHM - GI/Abdominal Exam GI & Abdominal Exam: Diminished Bowel Sounds, Soft. absent: Tenderness - Rectal Exam Rectal Exam: Deferred - Exam Exam: NORMAL INSPECTION - Extremities Exam Extremities exam: Negative for: pedal edema - Back Exam Back exam: absent: CVA tenderness (L), CVA tenderness (R), paraspinal tenderness - Neurological Exam Neurological exam: Alert, CN II-XII Intact, Oriented x3, Reflexes Normal - Psychiatric Exam Psychiatric exam: Normal Mood - Skin Skin Exam: Dry Results - Vital Signs Recent Vital Signs: Last Vital Signs Temp 98.1 F 01/18/17 16:41 Pulse 93 H 01/18/17 16:41 Resp 20 01/18/17 16:41 BP 125/78 01/18/17 16:41 Pulse Ox 98 01/18/17 08:00 - Labs Result Diagrams: 01/18/17 07:55 01/18/17 07:55 Labs: Laboratory Results - last 24 hr 01/17/17 01/17/17 01/17/17 16:42 16:42 21:21 WBC RBC Hgb Hct MCV MCH MCHC RDW Plt Count MPV Neut % (Auto) Lymph % (Auto) [place] % (Auto) Eos % (Auto) Baso % (Auto) Neut # Lymph # [place] # Eos # Baso # Sodium Potassium Chloride Carbon Dioxide Anion Gap BUN Creatinine Est GFR ( Amer) Est GFR (Non-Af Amer) POC Glucose (mg/dL) Random Glucose Calcium Total Bilirubin AST ALT Alkaline Phosphatase Total Creatine Kinase CK-MB (Mass) Troponin I, Quant Total Protein Albumin Globulin Albumin/Globulin Ratio Urine Color Straw Urine Clarity Clear Urine pH 7.0 Ur Specific [place] 1.009 Urine Protein Negative Urine Glucose (UA) Normal Urine Ketones Negative Urine Blood Negative Urine Nitrate Negative Urine Bilirubin Negative Urine Urobilinogen Normal Ur Leukocyte Esterase Neg Urine WBC (Auto) 1 Urine RBC (Auto) 1 Ur Squamous Epith Cells < 1 Urine Bacteria Rare Urine HCG, Qual CSF Volume 1 CSF Appearance Clear/colorless CSF WBC 0.0 CSF RBC 1.0 H CSF Total Cell Counted TEST NOT PERFORMED CSF Monos/Macrophages TEST NOT PERFORMED CSF Comment TEST NOT PERFORMED CSF Glucose 56 CSF Total Protein 24.0 Influenza Typ A,B (EIA) 01/17/17 01/17/17 01/18/17 21:21 21:26 07:16 WBC RBC Hgb Hct MCV MCH MCHC RDW Plt Count MPV Neut % (Auto) Lymph % (Auto) [place] % (Auto) Eos % (Auto) Baso % (Auto) Neut # Lymph # [place] # Eos # Baso # Sodium Potassium Chloride Carbon Dioxide Anion Gap BUN Creatinine Est GFR ( Amer) Est GFR (Non-Af Amer) POC Glucose (mg/dL) 140 H Random Glucose Calcium Total Bilirubin AST ALT Alkaline Phosphatase Total Creatine Kinase CK-MB (Mass) Troponin I, Quant Total Protein Albumin Globulin Albumin/Globulin Ratio Urine Color Urine Clarity Urine pH Ur Specific [place] Urine Protein Urine Glucose (UA) Urine Ketones Urine Blood Urine Nitrate Urine Bilirubin Urine Urobilinogen Ur Leukocyte Esterase Urine WBC (Auto) Urine RBC (Auto) Ur Squamous Epith Cells Urine Bacteria Urine HCG, Qual Negative CSF Volume CSF Appearance CSF WBC CSF RBC CSF Total Cell Counted CSF Monos/Macrophages CSF Comment CSF Glucose CSF Total Protein Influenza Typ A,B (EIA) Negative for flu a/b 01/18/17 01/18/17 01/18/17 07:55 07:55 11:22 WBC 6.7 RBC 4.66 Hgb 11.8 Hct 35.8 MCV 76.8 L MCH 25.2 L MCHC 32.9 L RDW 16.7 H Plt Count 313 MPV 7.8 Neut % (Auto) 79.4 H Lymph % (Auto) 18.8 L [place] % (Auto) 1.5 Eos % (Auto) 0.0 Baso % (Auto) 0.3 Neut # 5.3 Lymph # 1.3 [place] # 0.1 Eos # 0.0 Baso # 0.0 Sodium 140 Potassium 3.9 Chloride 102 Carbon Dioxide 24 Anion Gap 17 BUN 9 Creatinine 0.5 L Est GFR ( Amer) > 60 Est GFR (Non-Af Amer) > 60 POC Glucose (mg/dL) 217 H Random Glucose 131 H Calcium 9.2 Total Bilirubin 0.2 AST 16 ALT 31 Alkaline Phosphatase 97 Total Creatine Kinase CK-MB (Mass) Troponin I, Quant Total Protein 7.2 Albumin 3.8 Globulin 3.4 Albumin/Globulin Ratio 1.1 Urine Color Urine Clarity Urine pH Ur Specific [place] Urine Protein Urine Glucose (UA) Urine Ketones Urine Blood Urine Nitrate Urine Bilirubin Urine Urobilinogen Ur Leukocyte Esterase Urine WBC (Auto) Urine RBC (Auto) Ur Squamous Epith Cells Urine Bacteria Urine HCG, Qual CSF Volume CSF Appearance CSF WBC CSF RBC CSF Total Cell Counted CSF Monos/Macrophages CSF Comment CSF Glucose CSF Total Protein Influenza Typ A,B (EIA) 01/18/17 01/18/17 12:01 16:28 WBC RBC Hgb Hct MCV MCH MCHC RDW Plt Count MPV Neut % (Auto) Lymph % (Auto) [place] % (Auto) Eos % (Auto) Baso % (Auto) Neut # Lymph # [place] # Eos # Baso # Sodium Potassium Chloride Carbon Dioxide Anion Gap BUN Creatinine Est GFR ( Amer) Est GFR (Non-Af Amer) POC Glucose (mg/dL) 124 H Random Glucose Calcium Total Bilirubin AST ALT Alkaline Phosphatase Total Creatine Kinase 103 CK-MB (Mass) 1.92 Troponin I, Quant < 0.0120 Total Protein Albumin Globulin Albumin/Globulin Ratio Urine Color Urine Clarity Urine pH Ur Specific [place] Urine Protein Urine Glucose (UA) Urine Ketones Urine Blood Urine Nitrate Urine Bilirubin Urine Urobilinogen Ur Leukocyte Esterase Urine WBC (Auto) Urine RBC (Auto) Ur Squamous Epith Cells Urine Bacteria Urine HCG, Qual CSF Volume CSF Appearance CSF WBC CSF RBC CSF Total Cell Counted CSF Monos/Macrophages CSF Comment CSF Glucose CSF Total Protein Influenza Typ A,B (EIA) Assessment & Plan (1) Cervicogenic headache Status: Acute Priority: Medium (2) Chest pain Status: Acute - Assessment and Plan (Free Text) Assessment: no evidence of meningitis\ await final cultures ok to d/c acyclovir and vanco Neuro eval in progress for possible herniated disc
[2017-01-19] MEDS: Levothyroxine 112 MCG TAB PO SCH (05:34)
[2017-01-19 07:35] LABS: ALB/GLOB RATIO 1.1 (1.0-2.1); ALKALINE PHOSPHATASE 80 U/L (38-126); ALT/SGPT 26 U/L (9-52); AST/SGOT 20 U/L (14-36); BILIRUBIN,TOTAL 0.1 mg/dL (0.2-1.3); BLOOD UREA NITROGEN 14 mg/dL (7-17); CALCIUM 9.1 mg/dl (8.6-10.4); CARBON DIOXIDE 23 mmol/L (22-30); CHLORIDE 102 mmol/L (98-107); GFR AFRICAN-AMERICAN > 60; GLUCOSE,RANDOM 89 mg/dL (65-105); POTASSIUM 3.9 mmol/L (3.6-5.2); SODIUM 137 mmol/L (132-148); TOTAL PROTEIN 6.1 g/dL (6.3-8.3)
[2017-01-19 07:40] LABS: BASO % 0.2 % (0.0-2.0); LYMPH # 2.1 K/uL (1.0-4.3); LYMPH % 20.6 % (20.0-40.0); MEAN CELL VOLUME 76.1 fL (81.0-99.0); MEAN CORPUSCULAR HEMOGLOBIN 25.9 pg (27.0-31.0); MONO # 0.8 K/uL (0.0-0.8); MONO % 8.5 % (0.0-10.0); NRBC % 0.1 % (0.0-2.0); RED CELL DISTRIBUTION WIDTH 16.7 % (11.5-14.5)
--- NOTE | 2017-01-19 08:52 | CP.PCM.PN ---
<Sangita Fulton - Last Filed: 01/19/17 15:47> Subjective - Date & Time of Evaluation Date of Evaluation: 01/19/17 Time of Evaluation: 10:00 - Subjective Subjective: Medicine Note for Dr. Reese Weinstein Patient was seen and examined at bedside. She reports she has severe upperback pain that radiates to her head and down her spine. Denied fever, chills, headache, chest pain, SOB, abdominal pain, n/v/d/c, or urinary symptoms. Objective - Vital Signs/Intake and Output Vital Signs (last 24 hours): Temp Pulse Resp BP Pulse Ox 97.7 F 78 20 134/86 95 01/19/17 08:15 01/19/17 08:15 01/19/17 08:15 01/19/17 08:15 01/19/17 08:15 Intake and Output: 01/19/17 01/19/17 06:59 18:59 Intake Total 250 Balance 250 - Medications Medications: Current Medications Cyclobenzaprine HCl (Flexeril) 5 mg PO TID PRN PRN Reason: Neck pain/headache Enoxaparin Sodium (Lovenox) 40 mg SC DAILY [facility] Famotidine (Pepcid) 20 mg IVP DAILY [facility] Last Admin: 01/18/17 10:34 Dose: 20 mg Ceftriaxone Sodium 2 gm/ (Sodium Chloride) 100 mls @ 100 mls/hr IVPB DAILY [facility] Last Admin: 01/18/17 10:35 Dose: 100 mls/hr Ibuprofen (Motrin Tab) 600 mg PO Q6 [facility] Last Admin: 01/19/17 05:34 Dose: 600 mg Levothyroxine Sodium (Synthroid) 112 mcg PO DAILY@0630 [facility] Last Admin: 01/19/17 05:34 Dose: 112 mcg Ondansetron HCl (Zofran Inj) 4 mg IVP Q6H PRN PRN Reason: Nausea/Vomiting Pneumococcal Polyvalent Vaccine (Pneumovax 23 Vaccine) 0.5 ml IM .ONCE ONE Stop: 01/20/17 10:01 Tamsulosin HCl (Flomax) 0.4 mg PO DAILY [facility] Last Admin: 01/18/17 10:35 Dose: 0.4 mg - Labs Labs: 01/19/17 07:09 01/19/17 07:09 PT 11.2 SECONDS (9.7-12.2) 01/17/17 12:24 INR 1.0 01/17/17 12:24 APTT 25 SECONDS (21-34) 01/17/17 12:24 - Additional Findings Additional findings: - Constitutional Appears: Confused - Head Exam Head Exam: ATRAUMATIC - Eye Exam Eye Exam: EOMI, Normal appearance, PERRL Pupil Exam: PERRL - ENT Exam ENT Exam: Mucous Membranes Moist - Neck Exam Neck exam: Positive for: Full Rom (neck spasm C7-T3), Meningismus - Respiratory Exam Respiratory Exam: Clear to Auscultation Bilateral, NORMAL BREATHING PATTERN. absent: Rales, Rhonchi, Wheezes - Cardiovascular Exam Cardiovascular Exam: Tachycardia, REGULAR RHYTHM, +S1 - GI/Abdominal Exam GI & Abdominal Exam: Normal Bowel Sounds, Soft. absent: Tenderness - Rectal Exam Rectal Exam: Deferred - Extremities Exam Extremities exam: Positive for: full ROM. Negative for: calf tenderness - Back Exam Back exam: NORMAL INSPECTION. absent: CVA tenderness (L), CVA tenderness (R) - Neurological Exam Neurological exam: Alert, CN II-XII Intact, Oriented x3 - Psychiatric Exam Additional comments: AAO x3 - Skin Skin Exam: Warm Assessment and Plan - Assessment and Plan (Free Text) Plan: Cervicogenic headache Assessment & Plan: 01/18: s/p LP by anesthesia (POD 1)--> appears normal-->low suspicion for meningitis/encephalitis; afebrile, no elevated white count In ED, patient received 1st dose of Acyclovir, Rocephin, and Vancomcyin to cover given persistent headache X3 months, and possible fever at home Acyclovir 500mg IVQ 12H, Rocephin 2gm IV Qdialy, and Vancomyin 1 gram IV Q24h (active since 01/18/17) Droplet isolations pre-emptive in light of possible menegitis/ encephalitis Neurology (Dr. Quintero) consulted help appreciated Infectious Disease (Dr. Cortez) help appreciated As per Neurology * Recommend MRI of the cervical and thoracic spine with and without contrast for further evaluation and rule out any potential abscess. As per ID * No evidence of meningitis. await final cultures. ok to d/c acyclovir and vanco. * Patient continued on rocephin * F/U BC/UC Nephrolithiasis Assessment & Plan: known hx, patient does not have any colic pain, no CVA tenderness b/l, encourage water intake Tamsulosin 0.4mg PO daily Continued on rocephin Hypothyroidism Assessment & Plan: Synthroid 112mcg PO AM Prophylactic measure Assessment & Plan: GI ppx: Pepcid 20mg IVP q daily DVT ppx: Lovenox 40mg SC daily Zofran PRN nausea Heart Healthy Diet F/U PT/OT DW Donaldo Castillo DO, PGY-1 <Harvinder Weinstein - Last Filed: 01/19/17 19:01> Objective - Vital Signs/Intake and Output Vital Signs (last 24 hours): Temp Pulse Resp BP Pulse Ox 98.3 F 78 20 134/86 95 01/19/17 15:00 01/19/17 15:34 01/19/17 15:00 01/19/17 15:34 01/19/17 15:34 Intake and Output: 01/19/17 01/19/17 06:59 18:59 Intake Total 250 550 Balance 250 550 - Medications Medications: Current Medications Cyclobenzaprine HCl (Flexeril) 5 mg PO TID PRN PRN Reason: Neck pain/headache Last Admin: 01/19/17 11:11 Dose: 5 mg Docusate Sodium (Colace) 100 mg PO TID [facility] Last Admin: 01/19/17 18:19 Dose: 100 mg Enoxaparin Sodium (Lovenox) 40 mg SC DAILY [facility] Last Admin: 01/19/17 11:12 Dose: 40 mg Famotidine (Pepcid) 20 mg IVP DAILY [facility] Last Admin: 01/19/17 11:10 Dose: 20 mg Ceftriaxone Sodium 2 gm/ (Sodium Chloride) 100 mls @ 100 mls/hr IVPB DAILY [facility] Last Admin: 01/19/17 11:09 Dose: 100 mls/hr Sodium Chloride (Sodium Chloride 0.9%) 1,000 mls @ 75 mls/hr IV .[id number] [facility] Last Admin: 01/19/17 11:08 Dose: 75 mls/hr Ibuprofen (Motrin Tab) 600 mg PO Q6 [facility] Last Admin: 01/19/17 18:18 Dose: 600 mg Levothyroxine Sodium (Synthroid) 112 mcg PO DAILY@0630 [facility] Last Admin: 01/19/17 05:34 Dose: 112 mcg Ondansetron HCl (Zofran Inj) 4 mg IVP Q6H PRN PRN Reason: Nausea/Vomiting Pneumococcal Polyvalent Vaccine (Pneumovax 23 Vaccine) 0.5 ml IM .ONCE ONE Stop: 01/20/17 10:01 Saccharomyces Boulardii (Florastor) 250 mg PO BID [facility] Last Admin: 01/19/17 18:19 Dose: 250 mg Tamsulosin HCl (Flomax) 0.4 mg PO DAILY [facility] Last Admin: 01/19/17 11:10 Dose: 0.4 mg - Labs Labs: 01/19/17 07:09 01/19/17 07:09 PT 11.2 SECONDS (9.7-12.2) 01/17/17 12:24 INR 1.0 01/17/17 12:24 APTT 25 SECONDS (21-34) 01/17/17 12:24 Attending/Attestation - Attestation I have personally seen and examined this patient.: Yes I have fully participated in the care of the patient.: Yes I have reviewed all pertinent clinical information, including history, physical exam and plan: Yes Notes (Text): 01/19/17 18:51 Patient was seen and examined at 12:35 PM 01/19/17 Exam, assesssment and plan were thoroughly gone over with the resident Also on ROS: NO bowel movement in 2 days Bilateral posterior neck and shoulder pain chest pain (buts to manubrium) nonradiating Also on Exam: Reproducible pain with palpation in the bilateral posterior neck, shoulder, and manubrium Please note that the patient is noted to be seen laying in bed with neck flexed (head resting on pillow and clothing): I asked her not to do this as this is likely contributing to her likely muskuloskeletal pain. I spoke with Nurse caring for patient and informed her that patient was due for the MRI Cervical/Thoracic Spine to r/o possible abscess. Harvinder Weinstein D.O.
[2017-01-19] MEDS: Sodium Chloride 0.9% 1,000 ML IV SCH ×2 (11:08→21:48)
[2017-01-19] MEDS: cefTRIAXone 2 GM in Sodium Chloride 0.9% 100 ML IVPB SCH (11:09)
[2017-01-19] MEDS: Enoxaparin 40 mg Syringe SC SCH (11:12)
--- NOTE | 2017-01-19 11:37 | CP.PCM.PN ---
Subjective - Date & Time of Evaluation Date of Evaluation: 01/19/17 Time of Evaluation: 08:00 - Subjective Subjective: slow progress cultures neg Objective - Vital Signs/Intake and Output Vital Signs (last 24 hours): Temp Pulse Resp BP Pulse Ox 97.7 F 78 20 134/86 95 01/19/17 08:15 01/19/17 08:15 01/19/17 08:15 01/19/17 08:15 01/19/17 08:15 Intake and Output: 01/19/17 01/19/17 06:59 18:59 Intake Total 250 Balance 250 - Medications Medications: Current Medications Cyclobenzaprine HCl (Flexeril) 5 mg PO TID PRN PRN Reason: Neck pain/headache Last Admin: 01/19/17 11:11 Dose: 5 mg Enoxaparin Sodium (Lovenox) 40 mg SC DAILY [facility] Last Admin: 01/19/17 11:12 Dose: 40 mg Famotidine (Pepcid) 20 mg IVP DAILY [facility] Last Admin: 01/19/17 11:10 Dose: 20 mg Ceftriaxone Sodium 2 gm/ (Sodium Chloride) 100 mls @ 100 mls/hr IVPB DAILY [facility] Last Admin: 01/19/17 11:09 Dose: 100 mls/hr Sodium Chloride (Sodium Chloride 0.9%) 1,000 mls @ 75 mls/hr IV .[id number] [facility] Last Admin: 01/19/17 11:08 Dose: 75 mls/hr Ibuprofen (Motrin Tab) 600 mg PO Q6 [facility] Last Admin: 01/19/17 05:34 Dose: 600 mg Levothyroxine Sodium (Synthroid) 112 mcg PO DAILY@0630 [facility] Last Admin: 01/19/17 05:34 Dose: 112 mcg Ondansetron HCl (Zofran Inj) 4 mg IVP Q6H PRN PRN Reason: Nausea/Vomiting Pneumococcal Polyvalent Vaccine (Pneumovax 23 Vaccine) 0.5 ml IM .ONCE ONE Stop: 01/20/17 10:01 Tamsulosin HCl (Flomax) 0.4 mg PO DAILY [facility] Last Admin: 01/19/17 11:10 Dose: 0.4 mg - Labs Labs: 01/19/17 07:09 01/19/17 07:09 PT 11.2 SECONDS (9.7-12.2) 01/17/17 12:24 INR 1.0 01/17/17 12:24 APTT 25 SECONDS (21-34) 01/17/17 12:24 - Constitutional Appears: Non-toxic, Chronically Ill - Head Exam Head Exam: NORMOCEPHALIC - Eye Exam Eye Exam: PERRL - ENT Exam ENT Exam: Mucous Membranes Dry - Neck Exam Neck Exam: absent: Lymphadenopathy - Respiratory Exam Respiratory Exam: Decreased Breath Sounds - Cardiovascular Exam Cardiovascular Exam: REGULAR RHYTHM - GI/Abdominal Exam GI & Abdominal Exam: Distended, Soft. absent: Tenderness - Rectal Exam Rectal Exam: Deferred Assessment and Plan (1) Cervicogenic headache Status: Acute (2) Chest pain Status: Acute
[2017-01-19] MEDS: Saccharomyces Boulardi 250 mg Cap PO SCH (18:19)
[2017-01-20] MEDS: Sodium Chloride 0.9% 1,000 ML IV SCH (05:00)
[2017-01-20] MEDS: Levothyroxine 112 MCG TAB PO SCH (05:44)
[2017-01-20 08:46] LABS: BASO # 0.1 K/uL (0.0-0.2); BASO % 0.9 % (0.0-2.0); EOS # 0.1 K/uL (0.0-0.7); EOS % 1.2 % (0.0-4.0); HEMATOCRIT 33.2 % (34.0-47.0); LYMPH # 3.7 K/uL (1.0-4.3); LYMPH % 49.7 % (20.0-40.0); MEAN CELL VOLUME 76.7 fL (81.0-99.0); MEAN CORPUSCULAR HEMOGLOBIN 25.6 pg (27.0-31.0); MEAN CORPUSCULAR HGB CONC 33.4 g/dL (33.0-37.0); MEAN PLATELET VOLUME 7.8 fL (7.2-11.7); MONO # 0.5 K/uL (0.0-0.8); RED CELL DISTRIBUTION WIDTH 17.1 % (11.5-14.5); WHITE BLOOD COUNT 7.5 K/uL (4.8-10.8)
[2017-01-20 08:54] LABS: CHLORIDE 103 mmol/L (98-107); POTASSIUM 3.6 mmol/L (3.6-5.2); SODIUM 141 mmol/L (132-148)
[2017-01-20 08:56] LABS: ALB/GLOB RATIO 0.9 (1.0-2.1); ALKALINE PHOSPHATASE 86 U/L (38-126); AST/SGOT 16 U/L (14-36); BILIRUBIN,TOTAL 0.3 mg/dL (0.2-1.3); CARBON DIOXIDE 24 mmol/L (22-30); GFR AFRICAN-AMERICAN > 60; TOTAL PROTEIN 7.2 g/dL (6.3-8.3)
[2017-01-20 08:57] LABS: ALT/SGPT 30 U/L (9-52); BLOOD UREA NITROGEN 12 mg/dL (7-17); CALCIUM 7.8 mg/dl (8.6-10.4); GLUCOSE,RANDOM 79 mg/dL (65-105)
[2017-01-20] MEDS: Saccharomyces Boulardi 250 mg Cap PO SCH ×2 (09:45→18:50)
[2017-01-20] MEDS: Enoxaparin 40 mg Syringe SC SCH (09:46)
[2017-01-20] MEDS: cefTRIAXone 2 GM in Sodium Chloride 0.9% 100 ML IVPB SCH (09:47)
[2017-01-20] MEDS ORDERED: Pneumococcal 23-Valent Vaccine IM ONE (10:00)
--- NOTE | 2017-01-20 12:41 | CP.PCM.PN ---
Subjective - Date & Time of Evaluation Date of Evaluation: 01/20/17 Time of Evaluation: 08:00 - Subjective Subjective: no new complaints less headache Objective - Vital Signs/Intake and Output Vital Signs (last 24 hours): Temp Pulse Resp BP Pulse Ox 98.5 F 79 20 129/86 99 01/20/17 08:00 01/20/17 08:00 01/20/17 08:00 01/20/17 08:00 01/20/17 08:00 Intake and Output: 01/20/17 01/20/17 06:59 18:59 Intake Total 1999 Balance 1999 - Medications Medications: Current Medications Cyclobenzaprine HCl (Flexeril) 5 mg PO TID PRN PRN Reason: Neck pain/headache Last Admin: 01/20/17 08:35 Dose: 5 mg Docusate Sodium (Colace) 100 mg PO TID [facility] Last Admin: 01/20/17 09:45 Dose: 100 mg Enoxaparin Sodium (Lovenox) 40 mg SC DAILY [facility] Last Admin: 01/20/17 09:46 Dose: 40 mg Famotidine (Pepcid) 20 mg IVP DAILY [facility] Last Admin: 01/20/17 09:46 Dose: 20 mg Ceftriaxone Sodium 2 gm/ (Sodium Chloride) 100 mls @ 100 mls/hr IVPB DAILY [facility] Last Admin: 01/20/17 09:47 Dose: 100 mls/hr Sodium Chloride (Sodium Chloride 0.9%) 1,000 mls @ 75 mls/hr IV .[id number] [facility] Last Admin: 01/20/17 05:00 Dose: 75 mls/hr Ibuprofen (Motrin Tab) 600 mg PO Q6 [facility] Last Admin: 01/20/17 05:44 Dose: 600 mg Levothyroxine Sodium (Synthroid) 112 mcg PO DAILY@0630 [facility] Last Admin: 01/20/17 05:44 Dose: 112 mcg Ondansetron HCl (Zofran Inj) 4 mg IVP Q4H PRN PRN Reason: Nausea/Vomiting Saccharomyces Boulardii (Florastor) 250 mg PO BID [facility] Last Admin: 01/20/17 09:45 Dose: 250 mg Tamsulosin HCl (Flomax) 0.4 mg PO DAILY [facility] Last Admin: 01/20/17 09:45 Dose: 0.4 mg - Labs Labs: 01/20/17 08:27 01/20/17 08:27 PT 11.2 SECONDS (9.7-12.2) 01/17/17 12:24 INR 1.0 01/17/17 12:24 APTT 25 SECONDS (21-34) 01/17/17 12:24 - Constitutional Appears: Non-toxic - Head Exam Head Exam: NORMOCEPHALIC - Eye Exam Eye Exam: EOMI Pupil Exam: NORMAL ACCOMODATION - ENT Exam ENT Exam: Mucous Membranes Dry - Neck Exam Neck Exam: absent: Lymphadenopathy - Respiratory Exam Respiratory Exam: Clear to Ausculation Bilateral. absent: Stridor - Cardiovascular Exam Cardiovascular Exam: REGULAR RHYTHM, +S1, +S2 - GI/Abdominal Exam GI & Abdominal Exam: Distended, Soft - Rectal Exam Rectal Exam: Deferred Assessment and Plan (1) Cervicogenic headache Status: Acute (2) Chest pain Status: Acute
--- NOTE | 2017-01-20 14:00 | CARD ---
APPROVED REPORT EKG Measurement Heart [id number] [id number] <Conclusion> Normal sinus rhythm Incomplete right bundle branch block Moderate voltage criteria for LVH, may be normal variant Borderline ECG
--- NOTE | 2017-01-20 14:07 | CP.PCM.PN ---
<Sangita Fulton - Last Filed: 01/20/17 14:03> Subjective - Date & Time of Evaluation Date of Evaluation: 01/20/17 Time of Evaluation: 09:00 - Subjective Subjective: Medicine Note for Dr. Reese Weinstein Patient was seen and examined at bedside. She reports she has severe upperback pain that radiates to her head and down her spine. Denied fever, chills, headache, chest pain, SOB, abdominal pain, n/v/d/c, or urinary symptoms. Objective - Vital Signs/Intake and Output Vital Signs (last 24 hours): Temp Pulse Resp BP Pulse Ox 98.5 F 65 20 135/70 98 01/20/17 08:00 01/20/17 12:42 01/20/17 08:00 01/20/17 12:42 01/20/17 12:42 Intake and Output: 01/20/17 01/20/17 06:59 18:59 Intake Total 1999 Balance 1999 - Medications Medications: Current Medications Cyclobenzaprine HCl (Flexeril) 5 mg PO TID PRN PRN Reason: Neck pain/headache Last Admin: 01/20/17 08:35 Dose: 5 mg Docusate Sodium (Colace) 100 mg PO TID [facility] Last Admin: 01/20/17 09:45 Dose: 100 mg Enoxaparin Sodium (Lovenox) 40 mg SC DAILY [facility] Last Admin: 01/20/17 09:46 Dose: 40 mg Famotidine (Pepcid) 20 mg IVP DAILY [facility] Last Admin: 01/20/17 09:46 Dose: 20 mg Ceftriaxone Sodium 2 gm/ (Sodium Chloride) 100 mls @ 100 mls/hr IVPB DAILY [facility] Last Admin: 01/20/17 09:47 Dose: 100 mls/hr Ibuprofen (Motrin Tab) 600 mg PO Q6 [facility] Last Admin: 01/20/17 05:44 Dose: 600 mg Levothyroxine Sodium (Synthroid) 112 mcg PO DAILY@0630 [facility] Last Admin: 01/20/17 05:44 Dose: 112 mcg Ondansetron HCl (Zofran Inj) 4 mg IVP Q4H PRN PRN Reason: Nausea/Vomiting Saccharomyces Boulardii (Florastor) 250 mg PO BID [facility] Last Admin: 01/20/17 09:45 Dose: 250 mg Tamsulosin HCl (Flomax) 0.4 mg PO DAILY [facility] Last Admin: 01/20/17 09:45 Dose: 0.4 mg - Labs Labs: 01/20/17 08:27 01/20/17 08:27 PT 11.2 SECONDS (9.7-12.2) 01/17/17 12:24 INR 1.0 01/17/17 12:24 APTT 25 SECONDS (21-34) 01/17/17 12:24 - Additional Findings Additional findings: - Constitutional Appears: Confused - Head Exam Head Exam: ATRAUMATIC - Eye Exam Eye Exam: EOMI, Normal appearance, PERRL Pupil Exam: PERRL - ENT Exam ENT Exam: Mucous Membranes Moist - Neck Exam Neck exam: Positive for: Full Rom (neck spasm C7-T3), Meningismus, Reproducible pain with palpation in the bilateral posterior neck, shoulder, and manubrium - Respiratory Exam Respiratory Exam: Clear to Auscultation Bilateral, NORMAL BREATHING PATTERN. absent: Rales, Rhonchi, Wheezes - Cardiovascular Exam Cardiovascular Exam: Tachycardia, REGULAR RHYTHM, +S1 - GI/Abdominal Exam GI & Abdominal Exam: Normal Bowel Sounds, Soft. absent: Tenderness - Rectal Exam Rectal Exam: Deferred - Extremities Exam Extremities exam: Positive for: full ROM. Negative for: calf tenderness - Back Exam Back exam: NORMAL INSPECTION. absent: CVA tenderness (L), CVA tenderness (R) - Neurological Exam Neurological exam: Alert, CN II-XII Intact, Oriented x3 - Psychiatric Exam Additional comments: AAO x3 - Skin Skin Exam: Warm Assessment and Plan - Assessment and Plan (Free Text) Plan: Disposition: Waiting for the MRI cervical and thoracic spine, delay 2/2 MRI. Multiple calls have been made for the patient to have imaging done. Cervicogenic headache Assessment & Plan: 01/18: s/p LP by anesthesia --> appears normal-->low suspicion for meningitis/ encephalitis; afebrile, no elevated white count In ED, patient received 1st dose of Acyclovir, Rocephin, and Vancomcyin to cover given persistent headache X3 months, and possible fever at home Acyclovir 500mg IVQ 12H, Rocephin 2gm IV Qdialy, and Vancomyin 1 gram IV Q24h (active since 01/18/17) Droplet isolations pre-emptive in light of possible menegitis/ encephalitis Neurology (Dr. Quintero) consulted help appreciated Infectious Disease (Dr. Cortez) help appreciated As per Neurology * Recommend MRI of the cervical and thoracic spine with and without contrast for further evaluation and rule out any potential abscess. * Ordered has been placed since Thursday, however patient has not had these imaging studies performed. MRI contacted, they are backed up from imaging requests from Thursday. This is causing delay in patient care and discharge. As per ID * No evidence of meningitis. await final cultures. ok to d/c acyclovir and vanco. * Patient continued on rocephin * BC/UC: Negative Nephrolithiasis Assessment & Plan: known hx, patient does not have any colic pain, no CVA tenderness b/l, encourage water intake Tamsulosin 0.4mg PO daily Continued on rocephin Hypothyroidism Assessment & Plan: Synthroid 112mcg PO AM Prophylactic measure Assessment & Plan: GI ppx: Pepcid 20mg IVP q daily DVT ppx: Lovenox 40mg SC daily Zofran PRN nausea Heart Healthy Diet PT/OT: Recommend OUTPATIENT PT for neck pain and postural training and aspercream. DW Donaldo Castillo DO, PGY-1 <Harvinder Weinstein - Last Filed: 01/20/17 18:44> Objective - Vital Signs/Intake and Output Vital Signs (last 24 hours): Temp Pulse Resp BP Pulse Ox 97.9 F 78 22 132/85 99 01/20/17 15:00 01/20/17 15:00 01/20/17 15:00 01/20/17 15:00 01/20/17 15:00 Intake and Output: 01/20/17 01/20/17 06:59 18:59 Intake Total 1999 100 Balance 1999 100 - Medications Medications: Current Medications Cyclobenzaprine HCl (Flexeril) 5 mg PO TID PRN PRN Reason: Neck pain/headache Last Admin: 01/20/17 08:35 Dose: 5 mg Docusate Sodium (Colace) 100 mg PO TID [facility] Last Admin: 01/20/17 14:15 Dose: Not Given Enoxaparin Sodium (Lovenox) 40 mg SC DAILY [facility] Last Admin: 01/20/17 09:46 Dose: 40 mg Famotidine (Pepcid) 20 mg IVP DAILY [facility] Last Admin: 01/20/17 09:46 Dose: 20 mg Ibuprofen (Motrin Tab) 600 mg PO Q6 [facility] Last Admin: 01/20/17 14:05 Dose: Not Given Levothyroxine Sodium (Synthroid) 112 mcg PO DAILY@0630 [facility] Last Admin: 01/20/17 05:44 Dose: 112 mcg Ondansetron HCl (Zofran Inj) 4 mg IVP Q4H PRN PRN Reason: Nausea/Vomiting Last Admin: 01/20/17 14:14 Dose: 4 mg Saccharomyces Boulardii (Florastor) 250 mg PO BID [facility] Last Admin: 01/20/17 09:45 Dose: 250 mg Tamsulosin HCl (Flomax) 0.4 mg PO DAILY [facility] Last Admin: 01/20/17 09:45 Dose: 0.4 mg Trolamine Salicylate (Aspercreme) 1 gm TOP TID [facility] - Labs Labs: 01/20/17 08:27 01/20/17 08:27 PT 11.2 SECONDS (9.7-12.2) 01/17/17 12:24 INR 1.0 01/17/17 12:24 APTT 25 SECONDS (21-34) 01/17/17 12:24 Attending/Attestation - Attestation I have personally seen and examined this patient.: Yes I have fully participated in the care of the patient.: Yes I have reviewed all pertinent clinical information, including history, physical exam and plan: Yes Notes (Text): 01/20/17 18:39 Patient was seen and examined at 12:45 PM 01/20/17. Exam, assessment and plan were thoroughly gone over with the resident. Awaiting performance of MRI Cervical/Thoracic Spine: please note delay in progression of care of this patient due to the MRI of these regions to rule out abscess, not being performed in appropriate amount of time. I stressed to Kiln Puller to ask Radiology to see if they can perform these MRIs today/SHINE. As long as MRIs of spine show no acute issues, then we will discharge patient. I spoke with Physical Therapist Ce and she has provided patient with information for outpatient PT at [facility] (phone number and address). Rx for outpatient PT for Neck Pain and Postural Training was placed in the chart by resident. Harvinder Weinstein D.O.
[2017-01-20] MEDS ORDERED: Gadodiamide 287 mg/ml 20 ml IV ONE (15:28)
--- NOTE | 2017-01-20 16:48 | MRI ---
PROCEDURE: MR THORACIC SPINE WITH AND WITHOUT CONTRAST HISTORY: fever and neck/back pain, AMS, headache COMPARISON: Thoracic spine radiographs 11/13/2016. TECHNIQUE: Multiecho multiplanar sequences were performed through the thoracic spine with and without the use of intravenous contrast. 16 cc of Omniscan was utilized. FINDINGS: ALIGNMENT: Normal thoracic kyphosis is appreciated with a borderline Lowe scoliosis again evident. VERTEBRA: Vertebral body height are preserved. MARROW: Small benign hemangiomata are identified at T10 and T11 with remaining Marrow signal throughout the thoracic spine appear normal. PARASPINAL SOFT TISSUES: Unremarkable. CORD: Unremarkable thoracic cord. No volume loss, signal abnormality or syrinx. DISCS: No disc herniation, spinal canal stenosis, or neuroforaminal narrowing. ENHANCEMENT: No abnormal intrathecal or epidural enhancement identified throughout the thoracic spine. No abnormal bony enhancement either. OTHER FINDINGS: None. IMPRESSION: Unremarkable pre and post contrast enhanced MRI of the thoracic spine, with exception of benign hemangiomata at T10 and T11 as discussed above.
[2017-01-20 16:59] VITALS: O2SAT 99
--- NOTE | 2017-01-20 18:08 | MRI ---
PROCEDURE: MR CERVICAL SPINE WITH AND WITHOUT CONTRAST HISTORY: fever and neck/back pain, AMS, headache COMPARISON: None available. TECHNIQUE: Multiecho multiplanar sequences were performed through the cervical spine with and without the use of intravenous contrast. 16 cc of Omniscan was used was utilized for contrast. FINDINGS: History of the cervical curvature is identified. Is no interval fracture or spondylolisthesis identified. Marrow signal remains within normal limits diffusely. Intrinsic signal with throughout the cervical spinal cord appears within normal limits throughout with the cord normal in course caliber contour and overall volume. No intrinsic cord signal abnormality throughout. Moderate diffuse disc desiccation is appreciated. Prevertebral paraspinal soft tissues appear diffusely unremarkable. C2-3: No disc herniation, spinal canal stenosis or neural foraminal narrowing. C3-4: No disc herniation, spinal canal stenosis or neural foraminal narrowing. C4-5: No disc herniation, spinal canal stenosis or neural foraminal narrowing. C5-C6: No disc herniation, spinal canal stenosis or neural foraminal narrowing. C6-C7: No disc herniation, spinal canal stenosis or neuroforaminal narrowing. C7-T1: No disc herniation, spinal canal stenosis or neural foraminal narrowing. OTHER FINDINGS: Following intravenous gadolinium administration, there is no suspicious intrathecal or epidural enhancement identified. No evidence of spinal abscess, intrathecal or epidural mass. IMPRESSION: Straightened curvature without disc herniation, spinal stenosis or abnormal intrathecal or epidural contrast enhancement identified.
--- NOTE | 2017-01-20 18:14 | CARD ---
APPROVED REPORT EKG Measurement Heart [id number] [place] [id number] [id number] <Conclusion> Normal sinus rhythm Minimal voltage criteria for LVH, may be normal variant Borderline ECG
[2017-01-20] MEDS: Trolamine Salicylate 10% Cream (85 gm) TOP SCH (18:50)
[2017-01-21 00:19] VITALS: RESP 20
[2017-01-21] MEDS: Levothyroxine 112 MCG TAB PO SCH (05:40)
--- NOTE | 2017-01-21 07:15 | CP.PCM.DIS ---
<Sangita Fulton - Last Filed: 01/21/17 07:30> Provider - Provider Date of Admission: 01/17/17 15:17 Attending physician: Harvinder Weinstein MD Consults: Neuro: Dr. Quintero Time Spent in preparation of Discharge (in minutes): 55 Hospital Course - Lab Results Lab Results: Micro Results 01/17/17 17:30 Blood-Venous Blood Culture - Preliminary NO GROWTH AFTER 3 DAYS 01/17/17 17:00 Blood-Venous Blood Culture - Preliminary NO GROWTH AFTER 3 DAYS 01/17/17 16:55 Cerebral Spinal Fluid Gram Stain - Final 01/17/17 16:55 Cerebral Spinal Fluid CSF Culture - Preliminary NO GROWTH AFTER 3 DAYS 01/18/17 11:21 Other: Please Indicate Mycobacterial Culture - Preliminary 01/17/17 21:28 Urine,Clean Catch Urine Culture - Final No Growth (<1,000 CFU/ML) Most Recent Lab Values WBC 7.5 K/uL (4.8-10.8) 01/20/17 08:27 RBC 4.32 Mil/uL (3.80-5.20) 01/20/17 08:27 Hgb 11.1 g/dL (11.0-16.0) 01/20/17 08:27 Hct 33.2 % (34.0-47.0) L 01/20/17 08:27 MCV 76.7 fL (81.0-99.0) L 01/20/17 08:27 MCH 25.6 pg (27.0-31.0) L 01/20/17 08:27 MCHC 33.4 g/dL (33.0-37.0) 01/20/17 08:27 RDW 17.1 % (11.5-14.5) H 01/20/17 08:27 Plt Count 294 K/uL (130-400) 01/20/17 08:27 MPV 7.8 fL (7.2-11.7) 01/20/17 08:27 Neut % (Auto) 41.2 % (50.0-75.0) L 01/20/17 08:27 Lymph % (Auto) 49.7 % (20.0-40.0) H 01/20/17 08:27 Kaufman % (Auto) 7.0 % (0.0-10.0) 01/20/17 08:27 Eos % (Auto) 1.2 % (0.0-4.0) 01/20/17 08:27 Baso % (Auto) 0.9 % (0.0-2.0) 01/20/17 08:27 Neut # 3.1 K/uL (1.8-7.0) 01/20/17 08:27 Lymph # 3.7 K/uL (1.0-4.3) 01/20/17 08:27 Kaufman # 0.5 K/uL (0.0-0.8) 01/20/17 08:27 Eos # 0.1 K/uL (0.0-0.7) 01/20/17 08:27 Baso # 0.1 K/uL (0.0-0.2) 01/20/17 08:27 PT 11.2 SECONDS (9.7-12.2) 01/17/17 12:24 INR 1.0 01/17/17 12:24 APTT 25 SECONDS (21-34) 01/17/17 12:24 Sodium 141 mmol/L (132-148) 01/20/17 08:27 Potassium 3.6 mmol/L (3.6-5.2) 01/20/17 08:27 Chloride 103 mmol/L (98-107) 01/20/17 08:27 Carbon Dioxide 24 mmol/L (22-30) 01/20/17 08:27 Anion Gap 17 (10-20) 01/20/17 08:27 BUN 12 mg/dL (7-17) 01/20/17 08:27 Creatinine 0.5 MG/DL (0.7-1.2) L 01/20/17 08:27 Est GFR ( Amer) > 60 01/20/17 08:27 Est GFR (Non-Af Amer) > 60 01/20/17 08:27 POC Glucose (mg/dL) 115 mg/dL (65-110) H 01/20/17 21:40 Random Glucose 79 mg/dL (65-105) 01/20/17 08:27 Hemoglobin A1c 5.9 % (4.2-6.5) 01/17/17 12:24 Calcium 7.8 mg/dl (8.6-10.4) L 01/20/17 08:27 Total Bilirubin 0.3 mg/dL (0.2-1.3) 01/20/17 08:27 AST 16 U/L (14-36) 01/20/17 08:27 ALT 30 U/L (9-52) 01/20/17 08:27 Alkaline Phosphatase 86 U/L (38-126) 01/20/17 08:27 Total Creatine Kinase 103 U/L (30-135) 01/18/17 12:01 CK-MB (Mass) 1.92 ng/mL (0.0-3.38) 01/18/17 12:01 Troponin I < 0.0120 ng/mL (0.00-0.120) 01/17/17 12:24 Troponin I, Quant < 0.0120 ng/mL (0.00-0.120) 01/18/17 12:01 Total Protein 7.2 g/dL (6.3-8.3) 01/20/17 08:27 Albumin 3.4 g/dL (3.5-5.0) L 01/20/17 08:27 Globulin 3.8 gm/dL (2.2-3.9) 01/20/17 08:27 Albumin/Globulin Ratio 0.9 (1.0-2.1) L 01/20/17 08:27 Triglycerides 110 mg/dL (0-149) D 01/17/17 12:24 Cholesterol 179 mg/dL (0-199) 01/17/17 12:24 LDL Cholesterol Direct 117 mg/dL (0-129) 01/17/17 12:24 HDL Cholesterol 51 mg/dL (30-70) 01/17/17 12:24 Urine Color Straw (YELLOW) 01/17/17 21:21 Urine Clarity Clear (Clear) 01/17/17 21:21 Urine pH 7.0 (5.0-8.0) 01/17/17 21:21 Ur Specific [place] 1.009 (1.003-1.030) 01/17/17 21:21 Urine Protein Negative mg/dL (NEGATIVE) 01/17/17 21:21 Urine Glucose (UA) Normal mg/dL (Normal) 01/17/17 21:21 Urine Ketones Negative mg/dL (NEGATIVE) 01/17/17 21:21 Urine Blood Negative (NEGATIVE) 01/17/17 21:21 Urine Nitrate Negative (NEGATIVE) 01/17/17 21:21 Urine Bilirubin Negative (NEGATIVE) 01/17/17 21:21 Urine Urobilinogen Normal mg/dL (0.2-1.0) 01/17/17 21:21 Ur Leukocyte Esterase Neg Chelita/uL (Negative) 01/17/17 21:21 Urine WBC (Auto) 1 /hpf (0-5) 01/17/17 21:21 Urine RBC (Auto) 1 /hpf (0-3) 01/17/17 21:21 Ur Squamous Epith Cells < 1 /hpf (0-5) 01/17/17 21:21 Urine Bacteria Rare (<OCC) 01/17/17 21:21 Urine HCG, Qual Negative (NEGATIVE) 01/17/17 21:21 Fluid Type Spinal fluid 01/17/17 16:42 CSF Volume 1 mL (0-1) 01/17/17 16:42 CSF Appearance Clear/colorless (CLEAR) 01/17/17 16:42 CSF WBC 0.0 /mm3 (0.0-5.0) 01/17/17 16:42 CSF RBC 1.0 /mm3 (0.0-0.0) H 01/17/17 16:42 CSF Total Cell Counted TEST NOT PERFORMED 01/17/17 16:42 CSF Monos/Macrophages TEST NOT PERFORMED 01/17/17 16:42 CSF Comment TEST NOT PERFORMED 01/17/17 16:42 CSF Glucose 56 mg/dL (40-70) 01/17/17 16:42 CSF Total Protein 24.0 mg/dL (12-60) 01/17/17 16:42 CSF VDRL Nonreactive (Nonreactive) 01/17/17 16:42 HIV 1&2 Antibody Screen Negative (NEGATIVE) 01/17/17 21:21 Influenza Typ A,B (EIA) Negative for flu a/b (NEGATIVE) 01/17/17 21:26 Blood Type O POSITIVE 01/17/17 12:24 Antibody Screen Negative 01/17/17 12:24 - Hospital Course Hospital Course: Upon Admission: CC: Headache, Nausea/Vomiting x 4d This patient is a 46yo [place] Female with a PMhx of Nephrolithiasis and Hypothyroidism with no family who originally came to the hospital to get an MRI done as an outpatient. She states she has had an intense headache for 4-5 days associated with fevers (up to 104 degrees at home), neck pain, photophobia, and neck pain. Also as witnessed in the hospital, she sometimes will become disoriented to person place and time, but otherwise is able to recall where she is, her name, and consequences of actions. She describes this as the worst headache of her life. She has never had a headache this bad in the past, but has in the past gotten headaches that are associated with intense neck pain initially that then shoot up to her head. She denies any other symptoms Pmhx: Nephrolithiasis Meds: Tamsulosin, Levothyroxine Surgeries: Lithrotripsy Allergies: Egg, meat, nuts, no medications FamHx: denies Social: Lives alone, no family, independent in all IADL and ADL, came to hospital on her own Throughout Hospital Course: Patient was admitted for headache- wanted to rule out meningitis. Cervicogenic headache Assessment & Plan: 01/18: s/p LP by anesthesia --> appears normal-->low suspicion for meningitis/ encephalitis; afebrile, no elevated white count In ED, patient received 1st dose of Acyclovir, Rocephin, and Vancomcyin to cover given persistent headache X3 months, and possible fever at home Acyclovir 500mg IVQ 12H, Rocephin 2gm IV Qdialy, and Vancomyin 1 gram IV Q24h (active since 01/18/17) Droplet isolations pre-emptive in light of possible menegitis/ encephalitis Neurology (Dr. Quintero) consulted help appreciated Infectious Disease (Dr. Cortez) help appreciated As per Neurology * Ordered has been placed since Thursday, however patient has not had these imaging studies performed. MRI contacted, they are backed up from imaging requests from Thursday. This is causing delay in patient care and discharge. * MRI Cervical Spine w and w/o contrast: Straightened curvature without disc herniation, spinal stenosis or abnormal intrathecal or epidural contrast enhancement identified. * MRI thoracic spine with and without contrast: Unremarkable pre and post contrast enhanced MRI of the thoracic spine, with exception of benign hemangiomata at T10 and T11 as discussed above. * Dr. Quintero recommendations for medications: Continue with mag oxide 400mg PO BID and ibuprofen PRN. As per ID * No evidence of meningitis. await final cultures. ok to d/c acyclovir, rocephin and vanco. * BC/UC: Negative Nephrolithiasis Assessment & Plan: known hx, patient does not have any colic pain, no CVA tenderness b/l, encourage water intake Tamsulosin 0.4mg PO daily Hypothyroidism Assessment & Plan: Synthroid 112mcg PO AM This is a brief summary of the patient's hospital course, please review EMR for full record. Discharge Exam - Additional Findings Additional findings: - Head Exam Head Exam: ATRAUMATIC - Eye Exam Eye Exam: EOMI, Normal appearance, PERRL Pupil Exam: PERRL - ENT Exam ENT Exam: Mucous Membranes Moist - Neck Exam Neck exam: Positive for: Full Rom (neck spasm C7-T3), Meningismus, Reproducible pain with palpation in the bilateral posterior neck, shoulder, and manubrium - Respiratory Exam Respiratory Exam: Clear to Auscultation Bilateral, NORMAL BREATHING PATTERN. absent: Rales, Rhonchi, Wheezes - Cardiovascular Exam Cardiovascular Exam: Tachycardia, REGULAR RHYTHM, +S1 - GI/Abdominal Exam GI & Abdominal Exam: Normal Bowel Sounds, Soft. absent: Tenderness - Rectal Exam Rectal Exam: Deferred - Extremities Exam Extremities exam: Positive for: full ROM. Negative for: calf tenderness - Back Exam Back exam: NORMAL INSPECTION. absent: CVA tenderness (L), CVA tenderness (R) - Neurological Exam Neurological exam: Alert, CN II-XII Intact, Oriented x3 - Psychiatric Exam Additional comments: AAO x3 - Skin Skin Exam: Warm Discharge Plan - Discharge Medications Prescriptions: Ibuprofen [Motrin Tab] 600 mg PO Q6 PRN #30 tab PRN Reason: Headache Levothyroxine [Synthroid] 112 mcg PO DAILY #30 tab Magnesium Oxide [Mag-Oxide Magnesium] 400 mg PO BID #60 tablet Ondansetron ODT [Zofran ODT] 4 mg PO Q6H PRN #30 odt PRN Reason: Nausea/Vomiting Tamsulosin [Flomax] 0.4 mg PO DAILY #30 cap Trolamine Salicylate [Aspercreme] 1 gm TOP TID #1 tube - Follow Up Plan Condition: GUARDED Disposition: HOME/ ROUTINE Instructions: Ibuprofen (By mouth), Levothyroxine (By mouth), Ondansetron (By mouth), Tamsulosin (By mouth), Magnesium Oxide (By mouth), Trolamine Salicylate (On the skin), Back Pain (GEN) Additional Instructions: As per neurology, patient can take ibuprofen as needed for headaches every 6 hours and magnesium oxide 400mg by mouth twice a day, every day, you can take zofran 4mg under your tongue every 6 hours as needed for nausea. Please continue taking synthroid 112mcg by mouth daily for your hypothyroidism and flomax 0.4mg by mouth daily to help with your urination and hx of kidney stones. You were given a prescription to go to [facility] for outpatient physical therapy to help with your neck pain. Please perform stretches and apply warm compress to your neck to help alleviate your symptoms. You are to make an appointment at the [facility] to establish care. Please return to the ED if your symptoms worsen or return. Referrals: [facility] [Outside] <Harvinder Weinstein - Last Filed: 01/21/17 18:10> Provider - Provider Date of Admission: 01/17/17 15:17 Attending physician: Harvinder Weinstein MD Hospital Course - Lab Results Lab Results: Micro Results 01/17/17 16:55 Cerebral Spinal Fluid Gram Stain - Final 01/17/17 16:55 Cerebral Spinal Fluid CSF Culture - Preliminary NO GROWTH AFTER 4 DAYS 01/17/17 17:30 Blood-Venous Blood Culture - Preliminary NO GROWTH AFTER 3 DAYS 01/17/17 17:00 Blood-Venous Blood Culture - Preliminary NO GROWTH AFTER 3 DAYS 01/18/17 11:21 Other: Please Indicate Mycobacterial Culture - Preliminary 01/17/17 21:28 Urine,Clean Catch Urine Culture - Final No Growth (<1,000 CFU/ML) Most Recent Lab Values WBC 8.0 K/uL (4.8-10.8) 01/21/17 07:34 RBC 4.58 Mil/uL (3.80-5.20) 01/21/17 07:34 Hgb 11.5 g/dL (11.0-16.0) 01/21/17 07:34 Hct 35.2 % (34.0-47.0) 01/21/17 07:34 MCV 76.8 fL (81.0-99.0) L 01/21/17 07:34 MCH 25.0 pg (27.0-31.0) L 01/21/17 07:34 MCHC 32.5 g/dL (33.0-37.0) L 01/21/17 07:34 RDW 16.8 % (11.5-14.5) H 01/21/17 07:34 Plt Count 298 K/uL (130-400) 01/21/17 07:34 MPV 7.6 fL (7.2-11.7) 01/21/17 07:34 Neut % (Auto) 61.7 % (50.0-75.0) 01/21/17 07:34 Lymph % (Auto) 27.9 % (20.0-40.0) 01/21/17 07:34 Kaufman % (Auto) 7.6 % (0.0-10.0) 01/21/17 07:34 Eos % (Auto) 2.2 % (0.0-4.0) 01/21/17 07:34 Baso % (Auto) 0.6 % (0.0-2.0) 01/21/17 07:34 Neut # 5.0 K/uL (1.8-7.0) 01/21/17 07:34 Lymph # 2.2 K/uL (1.0-4.3) 01/21/17 07:34 Kaufman # 0.6 K/uL (0.0-0.8) 01/21/17 07:34 Eos # 0.2 K/uL (0.0-0.7) 01/21/17 07:34 Baso # 0.0 K/uL (0.0-0.2) 01/21/17 07:34 PT 11.2 SECONDS (9.7-12.2) 01/17/17 12:24 INR 1.0 01/17/17 12:24 APTT 25 SECONDS (21-34) 01/17/17 12:24 Sodium 134 mmol/L (132-148) 01/21/17 07:34 Potassium 3.9 mmol/L (3.6-5.2) 01/21/17 07:34 Chloride 98 mmol/L (98-107) 01/21/17 07:34 Carbon Dioxide 25 mmol/L (22-30) 01/21/17 07:34 Anion Gap 15 (10-20) 01/21/17 07:34 BUN 8 mg/dL (7-17) 01/21/17 07:34 Creatinine 0.5 mg/dL (0.7-1.2) L 01/21/17 07:34 Est GFR ( Amer) > 60 01/21/17 07:34 Est GFR (Non-Af Amer) > 60 01/21/17 07:34 POC Glucose (mg/dL) 125 mg/dL (65-110) H 01/21/17 11:29 Random Glucose 87 mg/dL (65-105) 01/21/17 07:34 Hemoglobin A1c 5.9 % (4.2-6.5) 01/17/17 12:24 Calcium 8.1 mg/dl (8.6-10.4) L 01/21/17 07:34 Total Bilirubin 0.4 mg/dL (0.2-1.3) 01/21/17 07:34 AST 12 U/L (14-36) L D 01/21/17 07:34 ALT 27 U/L (9-52) 01/21/17 07:34 Alkaline Phosphatase 89 U/L (38-126) 01/21/17 07:34 Total Creatine Kinase 103 U/L (30-135) 01/18/17 12:01 CK-MB (Mass) 1.92 ng/mL (0.0-3.38) 01/18/17 12:01 Troponin I < 0.0120 ng/mL (0.00-0.120) 01/17/17 12:24 Troponin I, Quant < 0.0120 ng/mL (0.00-0.120) 01/18/17 12:01 Total Protein 6.9 g/dL (6.3-8.3) 01/21/17 07:34 Albumin 3.5 g/dL (3.5-5.0) 01/21/17 07:34 Globulin 3.4 gm/dL (2.2-3.9) 01/21/17 07:34 Albumin/Globulin Ratio 1.0 (1.0-2.1) 01/21/17 07:34 Triglycerides 110 mg/dL (0-149) D 01/17/17 12:24 Cholesterol 179 mg/dL (0-199) 01/17/17 12:24 LDL Cholesterol Direct 117 mg/dL (0-129) 01/17/17 12:24 HDL Cholesterol 51 mg/dL (30-70) 01/17/17 12:24 Urine Color Straw (YELLOW) 01/17/17 21:21 Urine Clarity Clear (Clear) 01/17/17 21:21 Urine pH 7.0 (5.0-8.0) 01/17/17 21:21 Ur Specific [place] 1.009 (1.003-1.030) 01/17/17 21:21 Urine Protein Negative mg/dL (NEGATIVE) 01/17/17 21:21 Urine Glucose (UA) Normal mg/dL (Normal) 01/17/17 21:21 Urine Ketones Negative mg/dL (NEGATIVE) 01/17/17 21:21 Urine Blood Negative (NEGATIVE) 01/17/17 21:21 Urine Nitrate Negative (NEGATIVE) 01/17/17 21:21 Urine Bilirubin Negative (NEGATIVE) 01/17/17 21:21 Urine Urobilinogen Normal mg/dL (0.2-1.0) 01/17/17 21:21 Ur Leukocyte Esterase Neg [place]/uL (Negative) 01/17/17 21:21 Urine WBC (Auto) 1 /hpf (0-5) 01/17/17 21:21 Urine RBC (Auto) 1 /hpf (0-3) 01/17/17 21:21 Ur Squamous Epith Cells < 1 /hpf (0-5) 01/17/17 21:21 Urine Bacteria Rare (<OCC) 01/17/17 21:21 Urine HCG, Qual Negative (NEGATIVE) 01/17/17 21:21 Fluid Type Spinal fluid 01/17/17 16:42 CSF Volume 1 mL (0-1) 01/17/17 16:42 CSF Appearance Clear/colorless (CLEAR) 01/17/17 16:42 CSF WBC 0.0 /mm3 (0.0-5.0) 01/17/17 16:42 CSF RBC 1.0 /mm3 (0.0-0.0) H 01/17/17 16:42 CSF Total Cell Counted TEST NOT PERFORMED 01/17/17 16:42 CSF Monos/Macrophages TEST NOT PERFORMED 01/17/17 16:42 CSF Comment TEST NOT PERFORMED 01/17/17 16:42 CSF Glucose 56 mg/dL (40-70) 01/17/17 16:42 CSF Total Protein 24.0 mg/dL (12-60) 01/17/17 16:42 CSF VDRL Nonreactive (Nonreactive) 01/17/17 16:42 HIV 1&2 Antibody Screen Negative (NEGATIVE) 01/17/17 21:21 Influenza Typ A,B (EIA) Negative for flu a/b (NEGATIVE) 01/17/17 21:26 Blood Type O POSITIVE 01/17/17 12:24 Antibody Screen Negative 01/17/17 12:24 Attending/Attestation - Attestation I have personally seen and examined this patient.: Yes I have fully participated in the care of the patient.: Yes I have reviewed all pertinent clinical information, including history, physical exam and plan: Yes Notes (Text): 01/21/17 17:56 Patient was seen and examined with the resident at 8:45 AM 01/21/17. Upon ROS: She stated that she had an episode of nausea/vomiting after drinking water last night and therefore did not want to eat. She stated that she was dizzy at times NO chest pain NO palpitations NO SOB/Cough NO abdominal pain NO d/c NO burning/pain with urination NO paresthesias NO edema Headache posterior aspect Pain in the posterior shoulder and base of neck Physical Exam: - Constitutional Appears: Non-toxic, No Acute Distress, AAO x 3 - Head Exam Head Exam: NORMAL INSPECTION - Eye Exam Eye Exam: EOMI. absent: Nystagmus, Scleral icterus, PERRLA - ENT Exam ENT Exam: Mucous Membranes Moist, Nasal Turbinates are moist, NO cervical lymphadenopathy, NO thyromegaly, NO pharyngeal erythema/exudate - Respiratory Exam Respiratory Exam: CTA B/L NO R/R/W - Cardiovascular Exam Cardiovascular Exam: REGULAR RHYTHM, +S1, +S2. absent: JVD - GI/Abdominal Exam GI & Abdominal Exam: Soft, Normal Bowel Sounds, NONtender to deep palpation, NO HSM, ND. absent: Distended, Firm, Guarding, Rigid, Tenderness, Rebound - Extremities Exam Extremities Exam: Normal Capillary Refill, Pulses are strong and equal absent: Joint Swelling, Pedal Edema, Tenderness - Neurological Exam Neurological Exam: Alert, Awake, Oriented x3 - Psychiatric Exam Psychiatric exam: Patient does not seem to want to leave the hospital - Skin Skin Exam: Dry, Intact, Normal Color, Warm, NO skin tenting Please note that prior to when I entered the room, I noticed patient resting comfortably in bed. As soon as I walked in, patient started to moan. I asked her why she was moaning and she stated that she was having headache in the posterior head, shoulders and base of the neck. I asked her if she walked 10 laps around the medical floor every 1 to 2 hours yesterday as I had instructed her and not to stay in bed and she revealed that she had not done the walking. Please note that on multiple occasions patient is noted to have pillows and her clothing propped up behind her head with the neck flexed and I explained to her that this was likely contributing to the tightness in the muscles of the posterior neck/shoulders/trapezius. Patient stated that she had nausea and vomiting as mentioned in ROS. She was explained again her negative workup and that were labs were stable. Patient is asking to stay in the hospital for 1 more day and I explained to her that she was stable for discharge and that we could not keep her here past the time when she was deemed ready for discharge. It is my impression that the patient is delaying her discharge. Follow up was explained at length to her: 1). She was already provided with information to schedule appointment for outpatient PT at [facility] by Physical Therapist Ce on 01/20/17. 2). Patient was also instructed to schedule appointment with [facility] by calling [phone] for an appointment as she stated that she did not have a primary care physician. 3). She was provided wit Rx for Magoxide, Ibuprofen, Aspercreme Topical, Levothyroxine, Zofran and Flomax Harvinder Weinstein D.O.
--- NOTE | 2017-01-21 07:20 | CP.PCM.PN ---
Subjective - Date & Time of Evaluation Date of Evaluation: 01/21/17 Time of Evaluation: 07:19 - Subjective Subjective: Ms. Moore was seen and examined at the bedside. She is complaining of headache with location at the occipital area radiating to all areas of her head with dizziness, gait instability, nausea, but not radiating to her extremities. Her pain scale is 7/10, pressure-like, with photophobia and minimal phonophobia. She claims of vomiting all her morning meds. She is not in any kind of distress. There was no untoward events overnight. Objective - Vital Signs/Intake and Output Vital Signs (last 24 hours): Temp Pulse Resp BP Pulse Ox 98.2 F 70 20 116/76 99 01/21/17 00:00 01/21/17 00:00 01/21/17 00:00 01/21/17 00:00 01/21/17 00:00 Intake and Output: 01/21/17 01/21/17 06:59 18:59 Intake Total 300 120 Balance 300 120 - Medications Medications: Current Medications Cyclobenzaprine HCl (Flexeril) 5 mg PO TID PRN PRN Reason: Neck pain/headache Last Admin: 01/20/17 08:35 Dose: 5 mg Docusate Sodium (Colace) 100 mg PO TID [facility] Last Admin: 01/20/17 18:50 Dose: 100 mg Enoxaparin Sodium (Lovenox) 40 mg SC DAILY [facility] Last Admin: 01/20/17 09:46 Dose: 40 mg Famotidine (Pepcid) 20 mg IVP DAILY [facility] Last Admin: 01/20/17 09:46 Dose: 20 mg Ibuprofen (Motrin Tab) 600 mg PO Q6 [facility] Last Admin: 01/21/17 05:40 Dose: 600 mg Levothyroxine Sodium (Synthroid) 112 mcg PO DAILY@0630 [facility] Last Admin: 01/21/17 05:40 Dose: 112 mcg Ondansetron HCl (Zofran Inj) 4 mg IVP Q4H PRN PRN Reason: Nausea/Vomiting Last Admin: 01/21/17 05:38 Dose: 4 mg Saccharomyces Boulardii (Florastor) 250 mg PO BID [facility] Last Admin: 01/20/17 18:50 Dose: 250 mg Tamsulosin HCl (Flomax) 0.4 mg PO DAILY [facility] Last Admin: 01/20/17 09:45 Dose: 0.4 mg Trolamine Salicylate (Aspercreme) 1 gm TOP TID [facility] Last Admin: 01/20/17 18:50 Dose: 1 gm - Labs Labs: 01/20/17 08:27 01/20/17 08:27 PT 11.2 SECONDS (9.7-12.2) 01/17/17 12:24 INR 1.0 01/17/17 12:24 APTT 25 SECONDS (21-34) 01/17/17 12:24 - Constitutional Appears: Well - Head Exam Head Exam: ATRAUMATIC, NORMAL INSPECTION, NORMOCEPHALIC - Neurological Exam Neurological Exam: Alert, Awake, CN II-XII Intact, Oriented x3 Neuro motor strength exam: Left Upper Extremity: 5, Right Upper Extremity: 5, Left Lower Extremity: 5, Right Lower Extremity: 5 Additional comments: She has dizziness with neuro assessment, but able to follow all the commands. Assessment and Plan (1) Cervicogenic headache Assessment & Plan: Case discussed with Dr. Quintero, will give Magnesium Sulfate 2 gms. IVPB for 1 dose and decadron 10 mg IV for 1 dose. Continue current medical, physical, and occupational therapies. Status: Acute
[2017-01-21 07:54] LABS: BASO % 0.6 % (0.0-2.0); EOS # 0.2 K/uL (0.0-0.7); EOS % 2.2 % (0.0-4.0); HEMATOCRIT 35.2 % (34.0-47.0); LYMPH # 2.2 K/uL (1.0-4.3); LYMPH % 27.9 % (20.0-40.0); MEAN CELL VOLUME 76.8 fL (81.0-99.0); MEAN CORPUSCULAR HGB CONC 32.5 g/dL (33.0-37.0); MEAN PLATELET VOLUME 7.6 fL (7.2-11.7); MONO # 0.6 K/uL (0.0-0.8); MONO % 7.6 % (0.0-10.0); RED CELL DISTRIBUTION WIDTH 16.8 % (11.5-14.5)
[2017-01-21 08:04] VITALS: BP 129/85; PULSE 71; TEMP 97.8
[2017-01-21 08:10] LABS: CHLORIDE 98 mmol/L (98-107); POTASSIUM 3.9 mmol/L (3.6-5.2); SODIUM 134 mmol/L (132-148)
[2017-01-21 08:12] LABS: BILIRUBIN,TOTAL 0.4 mg/dL (0.2-1.3); GFR AFRICAN-AMERICAN > 60
[2017-01-21 08:13] LABS: ALKALINE PHOSPHATASE 89 U/L (38-126); ALT/SGPT 27 U/L (9-52); AST/SGOT 12 U/L (14-36); BLOOD UREA NITROGEN 8 mg/dL (7-17); CALCIUM 8.1 mg/dl (8.6-10.4); CARBON DIOXIDE 25 mmol/L (22-30); GLUCOSE,RANDOM 87 mg/dL (65-105); TOTAL PROTEIN 6.9 g/dL (6.3-8.3)
[2017-01-21] MEDS: Magnesium Sulfate 1 gm in D5W 1 GM/100 ML BAG IVPB SCH ×2 (08:23→09:00)
[2017-01-21] MEDS: Enoxaparin 40 mg Syringe SC SCH (11:19)
[2017-01-21] MEDS: Trolamine Salicylate 10% Cream (85 gm) TOP SCH (11:20)
[2017-01-21] MEDS: Saccharomyces Boulardi 250 mg Cap PO SCH (11:20)
== END 2017-01-21 11:45 | disposition home or self-care (01) | DRG 891 ==
LOC: C.ER 11:41 → C.9E 15:17 → C.6T 17:05 → C.9E 17:08 → C.3T 01-18 00:15
PROVIDERS: ADMIT Family Medicine; ATTEND Family Medicine
PROC: 009U3ZX Drainage of Spinal Canal, Percutaneous Approach, Diagnostic (ICD-10-PCS; principal; 2017-01-18)
DX: G44.89 Other headache syndrome (principal); N20.0 Calculus of kidney; N18.9 Chronic kidney disease, unspecified; W18.30XA Fall on same level, unspecified, initial encounter; E03.9 Hypothyroidism, unspecified; Z87.442 Personal history of urinary calculi

== ENCOUNTER 2017-05-26 16:31 | Emergency (ER) | payer OTHER ==
[2017-05-26 17:08] VITALS: BMI 29.7
--- NOTE | 2017-05-26 19:12 | C.PDOC ---
History Of Present Illness 47yo female with history of hypothyroidsm, presents to ED with complaints of chest pain for the past 2 days. She has been using Bengay and Vicks on her chest with no relief of symptoms. She also has pain in bilateral shoulders. She denies any nausea, vomiting, diaphoresis, shortness of breath, palpitation. Patient went to the clinic today and was told to come to ER for further evaluation. She also has a secondary complaint of feeling feverish and urinary burning with no associated hematuria. She also denies any calf pain, recent surgeries, or long distance travels. Time Seen by Provider: 05/26/17 18:41 Chief Complaint (Nursing): Chest Pain History Per: Patient History/Exam Limitations: no limitations Onset/Duration Of Symptoms: Days (2) Pain Scale Rating Of: 8 Quality: "Pain" Past Medical History Reviewed: Historical Data, Nursing Documentation, Vital Signs Vital Signs: Last Vital Signs Temp 97.6 F 05/26/17 23:33 Pulse 65 05/26/17 23:33 Resp 18 05/26/17 23:33 BP 116/71 05/26/17 23:33 Pulse Ox 99 05/26/17 23:44 - Medical History PMH: Arthritis (R WR ORIF), Fractures, Gastritis, Hiatal Hernia, Hypothyroidism , Kidney Stones, Migraine, Chronic Kidney Disease Surgical History: - [facility] Procedures DRAINAGE OF SPINAL CANAL, PERCUTANEOUS APPROACH, DIAGNOSTIC (01/17/17) Family History: States: Unknown Family Hx - Social History Hx Tobacco Use: No Hx Alcohol Use: No Hx Substance Use: No - Immunization History Hx Tetanus Toxoid Vaccination: No Hx Influenza Vaccination: Yes Hx Pneumococcal Vaccination: No Review Of Systems Except As Marked, All Systems Reviewed And Found Negative. Constitutional: Positive for: Fever. Negative for: Sweats Cardiovascular: Positive for: Chest Pain. Negative for: Palpitations Respiratory: Negative for: Shortness of Breath Genitourinary: Positive for: Dysuria. Negative for: Hematuria Physical Exam - Physical Exam Appears: Non-toxic Skin: Warm, Dry, No Diaphoretic Eye(s): bilateral: Normal Inspection Neck: Supple Chest: Symmetrical, Tenderness (mid sternal and bilateral chest wall tenderness. ) Cardiovascular: Rhythm Regular Respiratory: Decreased Breath Sounds (bilateral bases) Gastrointestinal/Abdominal: Normal Exam, Bowel Sounds, Soft, No Tenderness Back: Normal Inspection, No CVA Tenderness Extremity: Normal ROM, Tenderness (bilateral shoulder joint tenderness), No Pedal Edema Neurological/Psych: Oriented x3 ED Course And Treatment - Laboratory Results Result Diagrams: 05/26/17 19:37 05/26/17 19:37 O2 Sat by Pulse Oximetry: 99 (RA) Pulse Ox Interpretation: Normal Medical Decision Making Medical Decision Making: Impression: Chest pain Plan: ekg - nsr, lvh, nrm intervals, nrm axis, no st or twave abn. -- Labs -- EKG -- CXR -- Toradol 30 mg IVP HEART score 0 chest xray - nad, prel. read patient feels better, troponin x 2 negative patient pain described muscular, worst with movement, both pain in shoulders, worst with heavy lifting patient discharged home to follow up with pmd in one day. Disposition Counseled Patient/Family Regarding: Studies Performed, Diagnosis, Need For Followup, Rx Given - Disposition Referrals: Amber Lopez MD [Staff Provider] - Reese Salguero MD [Staff Provider] - Disposition: HOME/ ROUTINE Disposition Time: 23:43 Condition: IMPROVED Additional Instructions: follow up with Dr. Lpoez and cardiology in 2 days call to make an appointment take medications as needed for pain return to ER if symptoms worsens or progress Prescriptions: Naproxen [Naprosyn] 500 mg PO BID PRN #16 tab PRN Reason: Pain, Moderate (4-7) Instructions: Chest Pain (ED), Musculoskeletal Pain (ED) Forms: General Discharge Instructions, [facility] ([place]an), Work Excuse - Clinical Impression Clinical Impression: Chest pain, Musculoskeletal pain - Scribe Statement The provider has reviewed the documentation as recorded by the Marcosibe (Marleen Pickard) Provider Attestation: All medical record entries made by the Marcosibe were at my direction and personally dictated by me. I have reviewed the chart and agree that the record accurately reflects my personal performance of the history, physical exam, medical decision making, and the department course for this patient. I have also personally directed, reviewed, and agree with the discharge instructions and disposition.
[2017-05-26 19:40] LABS: BASO # 0.1 K/uL (0.0-0.2); BASO % 0.8 % (0.0-2.0); EOS # 0.1 K/uL (0.0-0.7); EOS % 1.9 % (0.0-4.0); HEMOGLOBIN 10.9 g/dL (11.0-16.0); LYMPH # 2.7 K/uL (1.0-4.3); LYMPH % 39.1 % (20.0-40.0); MEAN CORPUSCULAR HEMOGLOBIN 24.3 pg (27.0-31.0); MEAN CORPUSCULAR HGB CONC 32.5 g/dL (33.0-37.0); MEAN PLATELET VOLUME 7.8 fL (7.2-11.7); MONO # 0.3 K/uL (0.0-0.8); NEUT # 3.6 K/uL (1.8-7.0); NEUT % 53.2 % (50.0-75.0); NRBC % 0.1 % (0.0-2.0); RBC 4.48 Mil/uL (3.80-5.20); RED CELL DISTRIBUTION WIDTH 15.8 % (11.5-14.5); WHITE BLOOD COUNT 6.9 K/uL (4.8-10.8)
[2017-05-26 19:43] LABS: MEAN CELL VOLUME 74.7 fL (81.0-99.0)
[2017-05-26 19:52] LABS: ALB/GLOB RATIO 1.1 (1.0-2.1); ALBUMIN 4.4 g/dL (3.5-5.0); ALT/SGPT 33 U/L (9-52); AST/SGOT 25 U/L (14-36); BLOOD UREA NITROGEN 10 mg/dL (7-17); CALCIUM 8.7 mg/dl (8.6-10.4); GFR AFRICAN-AMERICAN > 60; GFR NON-AFRICAN AMERICAN > 60; LIPASE 178 U/L (23-300)
[2017-05-26 20:09] LABS: FREE T4 0.61 ng/dL (0.78-2.19)
[2017-05-26] MEDS ORDERED: Potassium Chloride 20 mEq ER Tab PO STA (20:18)
[2017-05-26 20:19] LABS: IRON 24 ug/dL (37-170)
[2017-05-26] MEDS ORDERED: Potassium Chloride 20 mEq ER Tab PO ONE (20:24)
[2017-05-26 20:27] LABS: FERRITIN 6.2 ng/mL
[2017-05-26 20:29] LABS: % IRON SATURATION 5 (20-55); TOTAL IRON BINDING CAPACITY 480 ug/dL (250-450)
[2017-05-26 23:34] VITALS: BP 116/71; PULSE 65; RESP 18; TEMP 97.6
[2017-05-26 23:44] VITALS: O2SAT 99
--- NOTE | 2017-05-27 10:11 | RAD ---
HISTORY: COMPARISON: 04/18/2015. TECHNIQUE: Chest PA and lateral FINDINGS: LINES AND TUBES: None. LUNG AND PLEURA: The lungs are well inflated and clear. HEART AND MEDIASTINUM: The heart is not enlarged. The hilar and mediastinal contours are within normal limits. SKELETAL STRUCTURES: The bony structures are within normal limits for the patient's age. VISUALIZED UPPER ABDOMEN: Normal. OTHER FINDINGS: None. IMPRESSION: No active pulmonary disease.
--- NOTE | 2017-05-27 14:09 | CARD ---
APPROVED REPORT EKG Measurement Heart [id number] <Conclusion> Normal sinus rhythm Minimal voltage criteria for LVH, may be normal variant Prolonged QT Abnormal ECG
== END 2017-05-27 00:10 | disposition home or self-care (01) ==
LOC: C.ER 16:31
DX: R07.9 Chest pain, unspecified (principal); M79.1 Myalgia; E87.6 Hypokalemia
CPT/HCPCS: 71046; 80053; 82728; 83036; 83540; 83550; 83690; 84439; 84443; 84484; 85025; 85378; 93005; 96374; 99285; J1885

== ENCOUNTER 2017-09-28 14:39 | Emergency (ER) | payer OTHER ==
[2017-09-28 14:39] VITALS: BMI 32.2
--- NOTE | 2017-09-28 15:56 | C.PDOC ---
History Of Present Illness 47 y/o female with history of renal stones presents to ED with c/o intermittent left flank pain for 1 week. Patient reports taking Naproxen with mild relief and states she was seen at clinic today. Patient is a poor historian and denies fever, chills, dysuria, hematuria or any other complaints at this time. LMP 08/27 Time Seen by Provider: 09/28/17 15:26 Chief Complaint (Nursing): Female Genitourinary History Per: Patient History/Exam Limitations: no limitations Onset/Duration Of Symptoms: Days Current Symptoms Are (Timing): Still Present Quality Of Discomfort: "Pain" Past Medical History Reviewed: Historical Data, Nursing Documentation, Vital Signs Vital Signs: Last Vital Signs Temp 98.6 F 09/28/17 14:41 Pulse 78 09/28/17 14:41 Resp 18 09/28/17 14:41 BP 153/91 H 09/28/17 14:41 Pulse Ox 100 09/28/17 16:00 - Medical History PMH: Arthritis (R WR ORIF), Fractures, Gastritis, Hiatal Hernia, Hypothyroidism , Kidney Stones, Migraine, Chronic Kidney Disease Surgical History: - [facility] Procedures DRAINAGE OF SPINAL CANAL, PERCUTANEOUS APPROACH, DIAGNOSTIC (01/17/17) Family History: States: No Known Family Hx - Social History Hx Tobacco Use: No Hx Alcohol Use: No Hx Substance Use: No - Immunization History Hx Tetanus Toxoid Vaccination: No Hx Influenza Vaccination: Yes Hx Pneumococcal Vaccination: No Review Of Systems Constitutional: Negative for: Fever, Chills Gastrointestinal: Positive for: Other (flank pain). Negative for: Nausea, Vomiting, Abdominal Pain Genitourinary: Negative for: Dysuria, Hematuria Skin: Negative for: Rash Physical Exam - Physical Exam Appears: Non-toxic, No Acute Distress Skin: Warm, Dry, No Rash Head: Atraumatic, Normacephalic Eye(s): bilateral: Normal Inspection Oral Mucosa: Moist Neck: Normal ROM, Supple Cardiovascular: Rhythm Regular Respiratory: Normal Breath Sounds, No Rales, No Rhonchi, No Wheezing Gastrointestinal/Abdominal: Soft, No Tenderness, No Guarding, No Rebound Back: No CVA Tenderness, No Paraspinal Tenderness Neurological/Psych: Oriented x3, Normal Speech, Normal Cognition ED Course And Treatment - Laboratory Results Result Diagrams: 09/28/17 15:55 09/28/17 15:55 O2 Sat by Pulse Oximetry: 100 (RA) Pulse Ox Interpretation: Normal Medical Decision Making Medical Decision Making: Plan: CT abd/pelvis, Blood work, UA Progress: Patient states when taking ibuprofen feels like face and body swell, no side effects when taking Naproxen 1750 pt with some small infra renal stones. no acute findings on ct. pt reports decreased pain. pt advised to to avoid nsaids if ibuprofen givens her facial swelling. d/u Dr Lopez Disposition Counseled Patient/Family Regarding: Studies Performed, Diagnosis, Need For Followup - Disposition Referrals: Amber Lopez MD [Staff Provider] - Disposition: HOME/ ROUTINE Disposition Time: 17:52 Condition: IMPROVED Additional Instructions: DO NOT TAKE IBUPROFEN OR NAPROXEN if these medicines make your face swell. Take Tylenol for pain if needed. FOllow up with Dr Lopez as soon as possibel. Return to ER for any worse symptoms. 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 - Scribe Statement The provider has reviewed the documentation as recorded by the Marcosibheidi Lynn All medical record entries made by the Gutierrez were at my direction and personally dictated by me. I have reviewed the chart and agree that the record accurately reflects my personal performance of the history, physical exam, medical decision making, and the department course for this patient. I have also personally directed, reviewed, and agree with the discharge instructions and disposition.
[2017-09-28 16:00] LABS: BASO # 0.1 K/uL (0.0-0.2); EOS # 0.1 K/uL (0.0-0.7); EOS % 1.7 % (0.0-4.0); LYMPH # 3.1 K/uL (1.0-4.3); LYMPH % 39.2 % (20.0-40.0); MEAN CELL VOLUME 73.1 fL (81.0-99.0); MEAN CORPUSCULAR HEMOGLOBIN 23.7 pg (27.0-31.0); MEAN CORPUSCULAR HGB CONC 32.4 g/dL (33.0-37.0); MEAN PLATELET VOLUME 8.1 fL (7.2-11.7); MONO # 0.4 K/uL (0.0-0.8); MONO % 5.3 % (0.0-10.0); NEUT # 4.2 K/uL (1.8-7.0); NEUT % 52.8 % (50.0-75.0); RBC 4.66 Mil/uL (3.80-5.20); WHITE BLOOD COUNT 7.9 K/uL (4.8-10.8)
[2017-09-28] MEDS ORDERED: Sodium Chloride 0.9% 1,000 ML IV ONE (16:00)
[2017-09-28 16:07] LABS: HCG,QUALITATIVE URINE NEGATIVE (NEGATIVE)
[2017-09-28 16:11] LABS: SQUAMOUS EPITHIAL 1 /hpf (0-5); URINE BACTERIA RARE (<OCC); URINE BILIRUBIN NEGATIVE (NEGATIVE); URINE BLOOD NEGATIVE (NEGATIVE); URINE CLARITY Clear (Clear); URINE COLOR Straw (YELLOW); URINE GLUCOSE (UA) NORMAL (Normal); URINE LEUKOCYTE ESTERASE NEG Leu/uL (Negative); URINE PROTEIN NEGATIVE (NEGATIVE); URINE UROBILINOGEN NORMAL mg/dL (0.2-1.0)
[2017-09-28] MEDS ORDERED: Sodium Chloride 0.9% 1,000 ML ONE (16:15)
[2017-09-28 16:17] LABS: ALB/GLOB RATIO 1.1 (1.0-2.1); ALBUMIN 3.9 g/dL (3.5-5.0); ALT/SGPT 17 U/L (9-52); AST/SGOT 19 U/L (14-36); BLOOD UREA NITROGEN 11 mg/dL (7-17); GFR AFRICAN-AMERICAN > 60; GFR NON-AFRICAN AMERICAN > 60; LIPASE 199 U/L (23-300)
--- NOTE | 2017-09-28 17:28 | CT ---
PROCEDURE: CT Abdomen and Pelvis without intravenous contrast HISTORY: left flank pain. hx stones COMPARISON: 04/02/2016 TECHNIQUE: Without contrast.. Contrast dose: 0 Radiation dose: Total exam DLP = 942.59 mGy-cm. This CT exam was performed using one or more of the following dose reduction techniques: Automated exposure control, adjustment of the mA and/or kV according to patient size, and/or use of iterative reconstruction technique. FINDINGS: LOWER THORAX: Unremarkable. LIVER: Unremarkable. No gross lesion or ductal dilatation. GALLBLADDER AND BILE DUCTS: Partially contracted. No calcified gallstones. PANCREAS: Unremarkable. No gross lesion or ductal dilatation. SPLEEN: Unremarkable. ADRENALS: Unremarkable. No mass. KIDNEYS AND URETERS: Several small nonobstructing left renal calculi. Probable mural calcification of the proximal left ureter unchanged compared to prior examination. No hydronephrosis. No renal mass. VASCULATURE: Unremarkable. No aortic aneurysm. BOWEL: Unremarkable. No obstruction. No gross mural thickening. APPENDIX: Unremarkable. Normal appendix. PERITONEUM: Unremarkable. No free fluid. No free air. LYMPH NODES: Unremarkable. No enlarged lymph nodes. BLADDER: Unremarkable. REPRODUCTIVE: Unremarkable. Normal uterus. BONES: No acute fracture. OTHER FINDINGS: None. IMPRESSION: Small nonobstructing left renal calculi. No evidence of urinary tract obstruction. No other acute abnormality.
[2017-09-28 18:08] VITALS: BP 118/81; PULSE 73; RESP 20; TEMP 98.5; O2SAT 99
== END 2017-09-28 18:09 | disposition home or self-care (01) ==
LOC: C.ER 14:39
DX: R10.9 Unspecified abdominal pain (principal); N18.9 Chronic kidney disease, unspecified
CPT/HCPCS: 74176; 80053; 81001; 83690; 84703; 85025; 96360; 99284; J7030